=== PATIENT | female | born 1950 | race Caucasian/White ===

== ENCOUNTER → 2022-03-24 13:21 | Outpatient (BNVA) | payer MEDICARE, SELFPAY | PROVIDERS: PCP Family Medicine; Visit Provider Student in an Organized Health Care Education/Training Program | DX: M06.09 Rheumatoid arthritis without rheumatoid factor, multiple sites (principal); M70.62 Trochanteric bursitis, left hip; G62.9 Polyneuropathy, unspecified; Z11.59 Encounter for screening for other viral diseases; E11.22 Type 2 diabetes mellitus with diabetic chronic kidney disease; I12.9 Hypertensive chronic kidney disease with stage 1 through stage 4 chronic kidney disease, or unspecified chronic kidney disease; N18.30 Chronic kidney disease, stage 3 unspecified; Z11.7 Encounter for testing for latent tuberculosis infection | CPT/HCPCS: 20610; 99202 ==

== ENCOUNTER → 2022-05-04 11:37 | Outpatient (BNVA) | payer MEDICARE, SELFPAY | PROVIDERS: PCP Family Medicine; Visit Provider Student in an Organized Health Care Education/Training Program | DX: M06.09 Rheumatoid arthritis without rheumatoid factor, multiple sites (principal); M70.62 Trochanteric bursitis, left hip; G62.9 Polyneuropathy, unspecified | CPT/HCPCS: 99212 ==

== ENCOUNTER 2022-10-19 13:59 | Outpatient (REF) | payer OTHER, SELFPAY ==
[2022-10-19 15:22] LABS: MANUAL DIFF FLAG NO
[2022-10-19 15:55] LABS: Basophils Percent Auto 0.4 % (0-2); Eosinophils Absolute Auto 0.2 X10*3/uL (0.0-0.4); Hematocrit 40.2 % (37.0-47.0); Hemoglobin 13.4 g/dl (12.0-16.0); Imm Gran Abs Auto 0.02 X10*3/uL (0.00-0.03); Imm Gran Pct Auto 0.3 % (0.0-0.4); Lymphocytes Absolute Auto 4.1 X10*3/uL (1.2-4.9); Lymphocytes Percent Auto 54.6 % (20-40); Mean Corpuscular HGB Conc 33.3 g/dl (31.0-35.0); Mean Corpuscular Hemoglobin 32.5 pg (27.0-33.0); Mean Corpuscular Volume 97.6 fL (80.0-98.0); Mean Platelet Volume 9.5 fL (9.4-12.3); Monocytes Absolute Auto 0.7 X10*3/uL (0.1-1.2); Monocytes Percent Auto 8.8 % (2-11); Neutrophils Absolute Auto 2.5 x10*3/uL (2.0-8.3); Neutrophils Percent Auto 32.9 % (45-73); Platelet Count 267 X10*3/uL (160-400); Red Blood Count 4.12 X10*6/uL (4.20-5.50); Red Cell Distribution Width 12.1 % (11.0-16.0); White Blood Count 7.6 X10*3/uL (4.8-10.8)
[2022-10-19 16:40] LABS: Erythrocyte Sedimentation Rate 23 MM/HR (0-20)
[2022-10-19 16:51] LABS: Alanine Aminotransferase 31 U/L (0-31); Alkaline Phosphatase 59 U/L (39-117); Anion Gap 12 (12-20); Aspartate Amino Transferase 28 U/L (5-31); Bilirubin Total 0.7 mg/dL (0.0-1.0); Blood Urea Nitrogen 17 mg/dL (9-16); C Reactive Protein 0.35 mg/dL (< or = 0.50); Calcium 9.7 mg/dL (8.4-10.2); Carbon Dioxide 28 mmol/L (22-29); Chloride 103 mmol/L (96-108); Estimated Glomerular Filt Rate > 60; Glucose Random 134 mg/dL (60-115); Potassium 3.4 mmol/L (3.3-5.1); Sodium 140 mmol/L (135-145); Total Protein 7.5 g/dL (6.5-8.0)
== END 2022-10-19 14:00 | disposition home or self-care (01) ==
LOC: HO.LAB 13:59
PROVIDERS: PCP Family Medicine; Visit Provider Student in an Organized Health Care Education/Training Program
DX: M06.09 Rheumatoid arthritis without rheumatoid factor, multiple sites (principal)
CPT/HCPCS: 36415; 80053; 85025; 85652; 86140; 99212

== ENCOUNTER 2022-10-19 13:59 | Outpatient (AMB) | payer MEDICARE, SELFPAY ==
[2022-10-19 14:03] VITALS: BP 122/64; PULSE 87; TEMP 36.3; O2SAT 96; BMI 34.0
--- NOTE | 2022-10-19 14:03 | MHC.OFFVIS ---
Intake Vital Signs 10/19/22 14:03 Height 5 ft 7.5 in Weight 220 lb 10.923 oz BMI 34.0 BP 122/64 Blood Pressure Location Rt brachial Position Sitting Pulse 87 Pulse Source Pulse Oximeter Temp 97.3 F Temp Source Skin Pulse Oximetry (%) 96 Intake Visit Reasons: RA Intake Note: Pt seen today for RA follow up. Test Driller Required: No Accompanied by: Self / Same As Patient Allergies naproxen Allergy (Intermediate, Verified 10/19/22 14:05) nausea, vomiting, diarrhea sulfasalazine Allergy (Intermediate, Verified 10/19/22 14:05) itchy indomethacin [From Indocin] Allergy (Unknown, Verified 10/19/22 14:05) Unknown Sulfa (Sulfonamide Antibiotics) Allergy (Unknown, Verified 10/19/22 14:05) Unknown prednisone Adverse Reaction (Mild, Verified 10/19/22 14:05) Swelling zocar Allergy (Unknown, Uncoded 10/19/22 14:05) unknown Medication List - Last Reconciled 10/19/22 by Deneen Triana MD adalimumab (Humira(CF) Pen) inject one - 40 mg/0.4 mL pen every 2 weeks subcut cyanocobalamin (vitamin B-12) 3,000 mcg PO DAILY cyclosporine 0.05% (Restasis) 1 drp ophthalmic (eye) Q12H diclofenac sodium 1% (Arthritis Pain (diclofenac)) 2 grams topical QID ferrous fumarate 325 mg PO DAILY fluticasone propionate 110 mcg/actuation (Flovent HFA) 1 puff inhalation BID hydrochlorothiazide 25 mg PO DAILY ibuprofen 400 mg PO Q8H PRN lactobacillus combination no.9 (Adult 50 Plus Probiotic) 4,000 mmu cells PO DAILY losartan 50 mg PO DAILY loteprednol etabonate 0.5% (Lotemax) 1 drp ophthalmic (eye) QID magnesium 400 mg PO BEDTIME PRN magnesium oxide 400 mg PO DAILY jxobglvq-ewg-ujqg-FA-lutein 8 mg iron-400 mcg-300 mcg (Centrum Silver Women) 1 tab PO DAILY omega 5-juk-ohm-fish oil 100-160-1,000 mg (Fish Oil) caps PO DAILY omeprazole 20 mg PO DAILY pilocarpine HCl 7.5 mg PO BID tizanidine 4 mg PO BID HPI HPI Comments History of Present Illness Details Patient returns for follow-up of seronegative RA. Patient follows recently prescribed a belt for her back which seems to help. She continues to have numbness of her feet worse with walking and standing. Improved with sitting, also improved with lying down and raising her feet up. She continues to have pain and swelling in her ankles, toes, hands, fingers. She uses compression gloves which helped. On Humira every other week Initial history: This is a 72-year-old female with past medical history of anxiety, depression, fibromyalgia, dyslipidemia who presents for evaluation of RA. Patient states she was diagnosed with rheumatoid arthritis in the late by Dr. Tate. ? 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 She did well on Enbrel for more than 10 years, and it was interrupted in 2018 when she had her right knee replacement. When the Enbrel was restarted it was never as efficacious as it was. Was doing well on Humira and leflunomide 10 mg a day however Leflunomide stopped due to neuropathy. Patient stated that she continues to have pain in her thumbs, the outside of her hips worse on the left. She has generalized morning stiffness lasting 15-20 minutes. Patient was diagnosed with neuropathy and leflunomide was discontinued. She had an EMG which showed mild neuropathy per patient. Venlafaxine helped the neuropathy.? Could not tolerate gabapentin.? Amitriptyline was not effective. Patient stated that she was also diagnosed with Sjogren's based on sicca symptoms and salivary gland biopsy. Some of her neuropathy was attributed to Sjogren's. Also over the last year she has been having loose stool and fecal incontinence. She had an endoscopy and manometry studies which showed rectal Dyssnergia. [facility] Medical History Alopecia Anxiety Depression Diabetes Essential (primary) hypertension Fibromyalgia Ganglion cyst Hyperlipemia Kidney disease, chronic, stage III (GFR 30-59 ml/min) Neutropenia Obesity PB (obstructive sleep apnea) Restless leg syndrome Rheumatoid arthritis Visual disturbance Surgical History History of hysterectomy History of knee replacement History of surgical removal of ganglion cyst Hx of colonoscopy Hx of left knee surgery Family History Daughter Osteoporosis Mother Rheumatoid arthritis Maternal Grandmother Rheumatoid arthritis Maternal Grandmother Rheumatoid arthritis Social History Household Members: Children Housing: House Alcohol intake: never Patient Tobacco Use Status: Never used Tobacco Current occupational status: previously employed and retired 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 Review of Systems Const Reports fatigue Musc Reports arthralgias, Reports joint swelling, Reports numbness and Reports stiffness Neuro Reports memory loss and Reports numbness Psych Reports depression and Reports memory loss Endo Reports fatigue Physical Exam Vital Signs: Last Vital Signs Temp 97.3 F 10/19/22 14:03 Pulse 87 10/19/22 14:03 BP 122/64 10/19/22 14:03 Pulse Ox 96 10/19/22 14:03 BMI result Body Mass Index 34.0 Const General: cooperative, healthy appearing and comfortable Nutritional Appearance: obese Orientation/consciousness: patient oriented x3 Limitations: no limitations HEENT Head: Yes normocephalic and Yes atraumatic Mouth: moist mucous membranes Resp Effort & Inspection: normal respiratory effort and able to speak in complete sentences Cardio Rate: regular rate Rhythm: regular rhythm Heart sounds: S1 normal heart sound present and S2 normal heart sound present GI Inspection: No distended Palpation (GI): Soft to palpation and nontender Skin General skin exam: no rashes or lesions noted Neuro Other: Mildly reduced sensation in both feet General: patient oriented x3 Extrem Other: Osteoarthritic changes of both hands with Heberden's nodes Left index finger Heberden's node tenderness Puffiness of fingers of both hands few MCP joints swelling and tenderness bilaterally Bilateral wrist pain with full range of motion Left ankle swelling and tenderness to palpation Few tender MTPs bilaterally Normal range of motion of both shoulders Left trochanteric bursa area tenderness Normal nailfold capillaroscopy Results Reviewed Results Reviewed: Labs 03/2022? CBC unremarkable Sed rate 24 CMP unremarkable Uric acid 5.4 C3-1 65 normal? C4 of 31 normal? CRP normal QuantiFERON negative Anca screen negative? MPO/PR3/SSA/SSB/CHARISMA negative RF/CCP negative? Nelson normal Hepatitis panel negative IgA 369 (70-320) IgG normal? IgM normal SPEP normal EMG of lower extremity in 2021: Normal Assessment & Plan Assessment & Plan (1) Rheumatoid arthritis: Comment: Seronegative diagnosed 1998 Enbrel effective for many years until 2018 Humira started around 2018, not as effective Methotrexate intolerant due to brain fog Leflunomide discontinued due to neuropathy Sulfa allergy Prednisone causes mood disorders Code(s): M06.9 - Rheumatoid arthritis, unspecified Qualifiers: Rheumatoid arthritis location: multiple sites Rheumatoid factor presence: without rheumatoid factor Qualified Code(s): M06.09 - Rheumatoid arthritis without rheumatoid factor, multiple sites Plan: This is a 72 year old female with a past medical history of seronegative RA/Sjogren's who presents follow-up. Upon evaluation today patient has multiple swollen and tender joints. Will need to change DMARDs. Discussed risks and benefits of Actemra. Patient is unaware of any history of diverticulitis. Patient agreed to proceed. Start prior authorization for Actemra Labs today and before next visit in 3 months Infectious screening: Hepatitis panel and T spot -ve 2022 Plan I spent 24 minutes reviewing patient's chart, evaluating patient, ordering diagnostic workup, counseling patient and documenting in the chart Orders: Orders Comprehensive Met. Panel 3 Months M06.9 - Rheumatoid arthritis, unspecified C Reactive Protein 3 Months M06.9 - Rheumatoid arthritis, unspecified Complete Blood Count Auto Diff 3 Months M06.9 - Rheumatoid arthritis, unspecified Erythrocyte Sedimentation Rate 3 Months M06.9 - Rheumatoid arthritis, unspecified Comprehensive Met. Panel Today M06.9 - Rheumatoid arthritis, unspecified C Reactive Protein Today M06.9 - Rheumatoid arthritis, unspecified Complete Blood Count Auto Diff Today M06.9 - Rheumatoid arthritis, unspecified Erythrocyte Sedimentation Rate Today M06.9 - Rheumatoid arthritis, unspecified Coding Level of Care Code Est Pt Level 4 (01587) Diagnoses Rheumatoid arthritis M06.09 Rheumatoid arthritis location: multiple sites Rheumatoid factor presence: without rheumatoid factor
== END 2022-10-19 14:44 | disposition home or self-care (01) ==
PROVIDERS: PCP Family Medicine; Visit Provider Student in an Organized Health Care Education/Training Program
DX: M06.09 Rheumatoid arthritis without rheumatoid factor, multiple sites (principal)
CPT/HCPCS: 99214

== ENCOUNTER 2023-01-19 13:52 | Outpatient (AMB) | payer MEDICARE, SELFPAY ==
[2023-01-19 14:08] VITALS: BP 124/62; PULSE 77; TEMP 36.6; O2SAT 95; BMI 33.5
--- NOTE | 2023-01-19 14:08 | MHC.OFFVIS ---
Intake Vital Signs 01/19/23 14:08 Height 5 ft 7.5 in Weight 217 lb 6.012 oz BMI 33.5 BP 124/62 Blood Pressure Location Rt brachial Position Sitting Pulse 77 Pulse Source Pulse Oximeter Temp 97.8 F Temp Source Skin Pulse Oximetry (%) 95 Intake Visit Reasons: RA Intake Note: Pt presents today for follow up and test results. She did not complete her bloodwork ordered. Reports rash since starting Actemra, would like to discuss alternative. Also reports fatigue and muscle weakness since starting Actemra. Saw PCP last week Institutional Research Director Required: No Accompanied by: Self / Same As Patient Allergies naproxen Allergy (Intermediate, Verified 01/19/23 14:23) nausea, vomiting, diarrhea sulfasalazine Allergy (Intermediate, Verified 01/19/23 14:23) itchy indomethacin [From Indocin] Allergy (Unknown, Verified 01/19/23 14:23) Unknown Sulfa (Sulfonamide Antibiotics) Allergy (Unknown, Verified 01/19/23 14:23) Unknown prednisone Adverse Reaction (Mild, Verified 01/19/23 14:23) Swelling zocar Allergy (Unknown, Uncoded 01/19/23 14:23) unknown Medication List - Last Reconciled 01/19/23 by Deneen Triana MD cholecalciferol (vitamin D3) 25 mcg PO DAILY cyanocobalamin (vitamin B-12) 3,000 mcg PO DAILY cyclosporine 0.05% (Restasis) 1 drp ophthalmic (eye) Q12H diclofenac sodium 1% (Arthritis Pain (diclofenac)) 2 grams topical QID ferrous fumarate 325 mg PO DAILY fluticasone propionate 110 mcg/actuation (Flovent HFA) 1 puff inhalation BID hydrochlorothiazide 25 mg PO DAILY ibuprofen 400 mg PO Q8H PRN lactobacillus combination no.9 (Adult 50 Plus Probiotic) 4,000 mmu cells PO DAILY losartan 50 mg PO DAILY loteprednol etabonate 0.5% (Lotemax) 1 drp ophthalmic (eye) QID magnesium 400 mg PO BEDTIME PRN magnesium oxide 400 mg PO DAILY ltfyxbxu-lam-aumx-FA-vit K-lut 8 mg iron-400 mcg-50 mcg (Centrum Silver Women) 1 tab PO DAILY omega 0-iad-xaz-fish oil 100-160-1,000 mg (Fish Oil) caps PO DAILY omeprazole 20 mg PO DAILY pilocarpine HCl 5 mg PO BID tizanidine 4 mg PO BID HPI HPI Comments History of Present Illness Details 72-year-old female with seronegative RA returns for follow-up. Patient in about 5 Actemra injections so far. States that since doing the exam as she has been having itchy skin rashes on her upper back which improved then flare-up again once she does the Actemra injection. She has been applying different steroid creams with improved the itching but not the rash. States that her joint pain especially the hips, elbows, hands is much better overall. She has been feeling fatigued however. She has been wearing a belt for her back which helps, she also has been doing physical therapy for her hips. Initial history: This is a 72-year-old female with past medical history of anxiety, depression, fibromyalgia, dyslipidemia who presents for evaluation of RA. Patient states she was diagnosed with rheumatoid arthritis in the late s by Dr. Tate. ? 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 She did well on Enbrel for more than 10 years, and it was interrupted in 2018 when she had her right knee replacement. When the Enbrel was restarted it was never as efficacious as it was. Was doing well on Humira and leflunomide 10 mg a day however Leflunomide stopped due to neuropathy. Patient stated that she continues to have pain in her thumbs, the outside of her hips worse on the left. She has generalized morning stiffness lasting 15-20 minutes. Patient was diagnosed with neuropathy and leflunomide was discontinued. She had an EMG which showed mild neuropathy per patient. Venlafaxine helped the neuropathy.? Could not tolerate gabapentin.? Amitriptyline was not effective. Patient stated that she was also diagnosed with Sjogren's based on sicca symptoms and salivary gland biopsy. Some of her neuropathy was attributed to Sjogren's. Also over the last year she has been having loose stool and fecal incontinence. She had an endoscopy and manometry studies which showed rectal Dyssnergia. [facility] Medical History (Updated 01/19/23 @ 17:04 by Deneen Triana MD) Ganglion cyst Fibromyalgia Rheumatoid arthritis Alopecia Kidney disease, chronic, stage III (GFR 30-59 ml/min) Essential (primary) hypertension Visual disturbance Restless leg syndrome PB (obstructive sleep apnea) Anxiety Depression Neutropenia Obesity Hyperlipemia Diabetes Surgical History History of knee replacement History of hysterectomy Hx of colonoscopy Hx of left knee surgery History of surgical removal of ganglion cyst Family History Daughter Osteoporosis Mother Rheumatoid arthritis Maternal Grandmother Rheumatoid arthritis Maternal Grandmother Rheumatoid arthritis Social History Household Members: Children Housing: House Alcohol intake: never Patient Tobacco Use Status: Never used Tobacco Current occupational status: previously employed and retired 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 Review of Systems Musc Reports back pain, Denies arthralgias and Denies joint swelling Skin/Breast Reports pruritus and Reports rash Physical Exam Vital Signs: Last Vital Signs Temp 97.8 F 01/19/23 14:08 Pulse 77 01/19/23 14:08 BP 124/62 01/19/23 14:08 Pulse Ox 95 01/19/23 14:08 BMI result Body Mass Index 33.5 Const General: cooperative, healthy appearing and comfortable Nutritional Appearance: obese Orientation/consciousness: patient oriented x3 Limitations: no limitations HEENT Head: Yes normocephalic and Yes atraumatic Resp Effort & Inspection: normal respiratory effort and able to speak in complete sentences Cardio Rate: regular rate Rhythm: regular rhythm Heart sounds: S1 normal heart sound present and S2 normal heart sound present Skin Other: Rash on her upper back Neuro Other: Mildly reduced sensation in both feet General: patient oriented x3 Extrem Other: Osteoarthritic changes of both hands with Heberden's nodes Left index finger Heberden's node tenderness Puffiness of fingers of both hands No MCP joint swelling or tenderness bilaterally today Normal range of motion of both wrists without pain Left knee warmth and pain with full flexion and full extension Normal range of motion of both elbows and shoulders without pain No ankle swelling or tenderness bilaterally Negative MTP tenderness and negative MTP squeeze test bilateral Normal nailfold capillaroscopy Office Procedures Joint Injection/Drain Joint Injection/Drain Primary Site: left knee Prep: site was prepped using sterile technique and ethochloride spray was applied Injected: 40 mg of and other (2 mL of 1% lidocaine) Approach Used: medial parapatellar Procedure: The patient tolerated the procedure well Coding Details: With the patient's consent the left knee was prepped with ChloraPrep and alcohol. The skin was anesthetized with 2 cc of 1% lidocaine. The knee was then injected with 40 mg of triamcinolone and 2 cc of I % lidocaine. The patient tolerated the procedure with no immediate adverse effects. - Large joint Procedure code (CPT) selection complete Results Reviewed Results Reviewed: Labs 03/2022? CBC unremarkable Sed rate 24 CMP unremarkable Uric acid 5.4 C3-1 65 normal? C4 of 31 normal? CRP normal QuantiFERON negative Anca screen negative? MPO/PR3/SSA/SSB/CHARISMA negative RF/CCP negative? Nelson normal Hepatitis panel negative IgA 369 (70-320) IgG normal? IgM normal SPEP normal EMG of lower extremity in 2021: Normal Assessment & Plan Assessment & Plan (1) Rheumatoid arthritis: Comment: Seronegative diagnosed 1998 Enbrel effective for many years until 2018 Humira started around 2018, not as effective Methotrexate intolerant due to brain fog Leflunomide discontinued due to neuropathy Sulfa allergy Prednisone causes mood disorders Actemra 10/2022 - 12/2022 effective but caused itchy skin rash & fatigue Code(s): M06.9 - Rheumatoid arthritis, unspecified Qualifiers: Rheumatoid arthritis location: multiple sites Rheumatoid factor presence: without rheumatoid factor Qualified Code(s): M06.09 - Rheumatoid arthritis without rheumatoid factor, multiple sites Plan: This is a 72 year old female with a past medical history of seronegative RA/Sjogren's who presents follow-up. On Actemra 162 mg every other week. Patient has significantly improved synovitis however she develops an itchy skin rash on her upper back soon after injection which improves a few days after then comes back with the next injection. She is also complaining of fatigue. Discontinue Actemra. With patient consent left knee was injected with Kenalog today. Will watch patient off DMARDs. Advised patient to call the clinic if she develops recurrent joint pain. Other alternatives can be discussed such as Kevzara, JEREMIE inhibitors or Orencia Labs today and before next visit in 3 months Plan I spent 30 minutes reviewing patient's chart, evaluating patient, ordering diagnostic workup, counseling patient and documenting in the chart Orders: Orders C Reactive Protein 3 Months M06.9 - Rheumatoid arthritis, unspecified Erythrocyte Sedimentation Rate 3 Months M06.9 - Rheumatoid arthritis, unspecified AMB Joint Injection/Aspiration Today M06.9 - Rheumatoid arthritis, unspecified Complete Blood Count Auto Diff 3 Months M06.9 - Rheumatoid arthritis, unspecified Comprehensive Met. Panel 3 Months M06.9 - Rheumatoid arthritis, unspecified Coding Level of Care Code Est Pt Level 4 (47664) Diagnoses Rheumatoid arthritis of multiple sites with negative rheumatoid factor M06.09 Rheumatoid arthritis location: multiple sites Rheumatoid factor presence: without rheumatoid factor CPT Codes Coding - 11829 Large joint: 79408 - Large joint ([id number])
== END 2023-01-19 14:52 | disposition home or self-care (01) ==
PROVIDERS: PCP Family Medicine; Visit Provider Student in an Organized Health Care Education/Training Program
DX: M06.09 Rheumatoid arthritis without rheumatoid factor, multiple sites (principal)
CPT/HCPCS: 20610; 99214

== ENCOUNTER 2023-01-19 13:52 | Outpatient (REF) | payer OTHER, SELFPAY ==
[2023-01-19 15:14] LABS: MANUAL DIFF FLAG NO
[2023-01-19 15:38] LABS: Basophils Percent Auto 0.7 % (0-2); Eosinophils Absolute Auto 0.2 X10*3/uL (0.0-0.4); Eosinophils Percent Auto 3.8 % (0-4); Hemoglobin 13.3 g/dl (12.0-16.0); Imm Gran Abs Auto 0.01 X10*3/uL (0.00-0.03); Imm Gran Pct Auto 0.2 % (0.0-0.4); Lymphocytes Absolute Auto 3.2 X10*3/uL (1.2-4.9); Lymphocytes Percent Auto 53.1 % (20-40); Mean Corpuscular HGB Conc 34.1 g/dl (31.0-35.0); Mean Corpuscular Hemoglobin 32.9 pg (27.0-33.0); Mean Corpuscular Volume 96.5 fL (80.0-98.0); Mean Platelet Volume 9.2 fL (9.4-12.3); Monocytes Absolute Auto 0.9 X10*3/uL (0.1-1.2); Monocytes Percent Auto 14.3 % (2-11); Neutrophils Absolute Auto 1.7 x10*3/uL (2.0-8.3); Neutrophils Percent Auto 27.9 % (45-73); Platelet Count 262 X10*3/uL (160-400); Red Blood Count 4.04 X10*6/uL (4.20-5.50); Red Cell Distribution Width 12.4 % (11.0-16.0)
[2023-01-19 16:13] LABS: Alanine Aminotransferase 45 U/L (0-31); Albumin Level 4.2 g/dL (3.5-5.0); Alkaline Phosphatase 62 U/L (39-117); Anion Gap 14 (12-20); Aspartate Amino Transferase 33 U/L (5-31); Bilirubin Total 0.5 mg/dL (0.0-1.0); Blood Urea Nitrogen 23 mg/dL (9-16); C Reactive Protein 0.25 mg/dL (< or = 0.50); Calcium 10.1 mg/dL (8.4-10.2); Carbon Dioxide 29 mmol/L (22-29); Chloride 101 mmol/L (96-108); Estimated Glomerular Filt Rate > 60; Glucose Random 92 mg/dL (60-115); Potassium 3.9 mmol/L (3.3-5.1); Sodium 140 mmol/L (135-145); Total Protein 7.6 g/dL (6.5-8.0)
[2023-01-19 16:52] LABS: Erythrocyte Sedimentation Rate 20 MM/HR (0-20)
== END 2023-01-19 13:53 | disposition home or self-care (01) ==
LOC: HO.LAB 13:52
PROVIDERS: PCP Family Medicine; Visit Provider Student in an Organized Health Care Education/Training Program
DX: M06.09 Rheumatoid arthritis without rheumatoid factor, multiple sites (principal)
CPT/HCPCS: 20610; 36415; 80053; 85025; 85652; 86140; 99212; J3301

== ENCOUNTER 2023-06-11 13:03 | Outpatient (AMB) | payer OTHER, SELFPAY ==
--- NOTE | 2023-06-11 13:10 | MHC.OFFVIS ---
Intake Vital Signs 06/11/23 13:18 Height 5 ft 7.5 in Weight 208 lb 8.917 oz BMI 32.2 BP 102/78 Blood Pressure Location Lt brachial Position Sitting Pulse 93 Pulse Source Pulse Oximeter Temp 97 F Temp Source Skin Pulse Oximetry (%) 94 Oxygen Delivery Method Room Air Intake Visit Reasons: Rt hand pain/swelling Intake Note: C/o Right had pain, stiffness, swelling x 1 week. Reports difficulty closing hand. 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 Required: No Accompanied by: Daughter Allergies naproxen Allergy (Intermediate, Verified 06/11/23 13:10) nausea, vomiting, diarrhea sulfasalazine Allergy (Intermediate, Verified 06/11/23 13:10) itchy indomethacin [From Indocin] Allergy (Unknown, Verified 06/11/23 13:10) Unknown Sulfa (Sulfonamide Antibiotics) Allergy (Unknown, Verified 06/11/23 13:10) Unknown prednisone Adverse Reaction (Mild, Verified 06/11/23 13:10) Swelling zocar Allergy (Unknown, Uncoded 06/11/23 13:10) unknown Medication List - Last Reconciled 06/11/23 by Deneen Triana MD cholecalciferol (vitamin D3) 25 mcg PO DAILY cyanocobalamin (vitamin B-12) 3,000 mcg PO DAILY cyclosporine 0.05% (Restasis) 1 drp ophthalmic (eye) Q12H diclofenac sodium 1% (Arthritis Pain (diclofenac)) 2 grams topical QID ferrous fumarate 325 mg PO DAILY fluticasone propionate 110 mcg/actuation (Flovent HFA) 1 puff inhalation BID hydrochlorothiazide 25 mg PO DAILY ibuprofen 400 mg PO Q8H PRN lactobacillus combination no.9 (Adult 50 Plus Probiotic) 4,000 mmu cells PO DAILY losartan 50 mg PO DAILY loteprednol etabonate 0.5% (Lotemax) 1 drp ophthalmic (eye) QID magnesium 400 mg PO BEDTIME PRN magnesium oxide 400 mg PO DAILY sytzainm-vou-tydc-FA-vit K-lut 8 mg iron-400 mcg-50 mcg (Centrum Silver Women) 1 tab PO DAILY omega 7-cvs-lib-fish oil 100-160-1,000 mg (Fish Oil) caps PO DAILY omeprazole 20 mg PO DAILY pilocarpine HCl 5 mg PO BID tizanidine 4 mg PO BID HPI HPI Comments History of Present Illness Details 73-year-old female with seronegative RA returns for an urgent visit. Patient received a steroid injection in her knee December/2022. She states that she was doing quite well overall until about 3 weeks ago when she got a head cold since then she has been having multiple painful and swollen joints including both her hands, worse on the right, both wrists, both ankles. Right hip. She is not on any DMARDs since last visit Initial history: This is a 72-year-old female with past medical history of anxiety, depression, fibromyalgia, dyslipidemia who presents for evaluation of RA. Patient states she was diagnosed with rheumatoid arthritis in the late by Dr. Tate. ? 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 She did well on Enbrel for more than 10 years, and it was interrupted in 2017 when she had her right knee replacement. When the Enbrel was restarted it was never as efficacious as it was. Was doing well on Humira and leflunomide 10 mg a day however Leflunomide stopped due to neuropathy. Patient stated that she continues to have pain in her thumbs, the outside of her hips worse on the left. She has generalized morning stiffness lasting 15-20 minutes. Patient was diagnosed with neuropathy and leflunomide was discontinued. She had an EMG which showed mild neuropathy per patient. Venlafaxine helped the neuropathy.? Could not tolerate gabapentin.? Amitriptyline was not effective. Patient stated that she was also diagnosed with Sjogren's based on sicca symptoms and salivary gland biopsy. Some of her neuropathy was attributed to Sjogren's. Also over the last year she has been having loose stool and fecal incontinence. She had an endoscopy and manometry studies which showed rectal Dyssnergia. [facility] Medical History Ganglion cyst Fibromyalgia Rheumatoid arthritis Alopecia Kidney disease, chronic, stage III (GFR 30-59 ml/min) Essential (primary) hypertension Visual disturbance Restless leg syndrome PB (obstructive sleep apnea) Anxiety Depression Neutropenia Obesity Hyperlipemia Diabetes Surgical History History of knee replacement History of hysterectomy Hx of colonoscopy Hx of left knee surgery History of surgical removal of ganglion cyst Family History Daughter Osteoporosis Mother Rheumatoid arthritis Maternal Grandmother Rheumatoid arthritis Maternal Grandmother Rheumatoid arthritis Social History Household Members: Children Housing: House Alcohol intake: never Patient Tobacco Use Status: Never used Tobacco Current occupational status: previously employed and retired 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 Reports arthralgias, Reports joint swelling, Reports limited range of motion and Reports stiffness Physical Exam Vital Signs: Last Vital Signs Temp 97 F 06/11/23 13:18 Pulse 93 06/11/23 13:18 BP 102/78 06/11/23 13:18 Pulse Ox 94 06/11/23 13:18 Oxygen Delivery Method Room Air 06/11/23 13:18 BMI result Body Mass Index 32.2 Const General: cooperative, healthy appearing, comfortable and in distress mild Nutritional Appearance: obese Orientation/consciousness: patient oriented x3 Limitations: no limitations HEENT Head: Yes normocephalic and Yes atraumatic Mouth: moist mucous membranes Resp Effort & Inspection: normal respiratory effort and able to speak in complete sentences Auscultation: clear to auscultation bilaterally Neuro General: patient oriented x3 Extrem Other: Right :wrist swelling, tenderness and pain with flexion and extension Diffuse MCP swelling and tenderness Diffuse finger puffiness Left hand few tender MCPs Bilateral ankle tenderness Results Reviewed Results Reviewed: Labs 03/2022? CBC unremarkable Sed rate 24 CMP unremarkable Uric acid 5.4 C3-1 65 normal? C4 of 31 normal? CRP normal QuantiFERON negative Anca screen negative? MPO/PR3/SSA/SSB/CHARISMA negative RF/CCP negative? Nelson normal Hepatitis panel negative IgA 369 (70-320) IgG normal? IgM normal SPEP normal EMG of lower extremity in 2021: Normal Assessment & Plan Assessment & Plan (1) Rheumatoid arthritis: Comment: Seronegative diagnosed 1998 Enbrel effective for many years until 2018 Humira started around 2018, not as effective Methotrexate intolerant due to brain fog Leflunomide discontinued due to neuropathy Sulfa allergy Prednisone causes mood disorders Actemra 10/2022 - 12/2022 effective but caused itchy skin rash & fatigue Code(s): M06.9 - Rheumatoid arthritis, unspecified Qualifiers: Rheumatoid arthritis location: multiple sites Rheumatoid factor presence: without rheumatoid factor Qualified Code(s): M06.09 - Rheumatoid arthritis without rheumatoid factor, multiple sites Plan: This is a 73 year old female with a past medical history of seronegative RA/Sjogren's who presents follow-up. Patient has been off DMARDs since 12/2022. She was doing quite well until 3 weeks ago when she had an upper respiratory tract infection. On exam today she has diffuse synovitis. Will need to restart DMARDs. Actemra, worked quite well for patient's RA but she developed an allergic reaction to it. IL 6 inhibitors should be effective. Discussed risks and benefits of Kevzara. Will start prior authorization for Kevzara Prednisone taper prescribed Labs before next visit in 2 months Plan I spent 25 minutes reviewing patient's chart, evaluating patient, ordering diagnostic workup, counseling patient and documenting in the chart Medications: New prednisone Take 3 tabs daily for 1 week, 2 tabs daily for 2 weeks, 1 tab daily for 2 weeks then stop 63 tabs 0RF Coding Level of Care Code Est Pt Level 4 (50693) Diagnoses Rheumatoid arthritis of multiple sites with negative rheumatoid factor M06.09 Rheumatoid arthritis location: multiple sites Rheumatoid factor presence: without rheumatoid factor
[2023-06-11 13:18] VITALS: BP 102/78; PULSE 93; TEMP 36.1; O2SAT 94; BMI 32.2
== END 2023-06-11 13:34 | disposition home or self-care (01) ==
PROVIDERS: PCP Family Medicine; Visit Provider Student in an Organized Health Care Education/Training Program
DX: M06.09 Rheumatoid arthritis without rheumatoid factor, multiple sites (principal)
CPT/HCPCS: 99214

== ENCOUNTER → 2023-06-11 13:03 | Outpatient (BNVA) | payer OTHER, SELFPAY | PROVIDERS: PCP Family Medicine; Visit Provider Student in an Organized Health Care Education/Training Program | DX: M06.09 Rheumatoid arthritis without rheumatoid factor, multiple sites (principal) | CPT/HCPCS: 99212 ==

== ENCOUNTER 2023-08-14 14:13 | Outpatient (AMB) | payer OTHER, SELFPAY ==
[2023-08-14 14:22] VITALS: BP 112/58; PULSE 89; O2SAT 99; BMI 33.1
--- NOTE | 2023-08-14 14:22 | A.OFFVIS_ITS ---
Vital Signs 08/14/23 14:22 Height 5 ft 7.5 in Weight 214 lb 8.156 oz BMI 33.1 BP 112/58 L Blood Pressure Location Rt brachial Position Sitting Pulse 89 Pulse Source Pulse Oximeter Pulse Oximetry (%) 99 Oxygen Delivery Method Room Air Intake Visit Reasons: RA Intake Note: Patient last seen 06/11/23 presents today for follow up and test results. Reports bl feet swelling and throbbing pain, very tender. 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 Required: No Accompanied by: Self / Same As Patient Allergies naproxen Allergy (Intermediate, Verified 08/14/23 14:32) nausea, vomiting, diarrhea sulfasalazine Allergy (Intermediate, Verified 08/14/23 14:32) itchy indomethacin [From Indocin] Allergy (Unknown, Verified 08/14/23 14:32) Unknown Sulfa (Sulfonamide Antibiotics) Allergy (Unknown, Verified 08/14/23 14:32) Unknown prednisone Adverse Reaction (Mild, Verified 08/14/23 14:32) Swelling zocar Allergy (Unknown, Uncoded 08/14/23 14:32) unknown Medication List - Last Reconciled 08/14/23 by Deneen Triana MD cholecalciferol (vitamin D3) 25 mcg PO DAILY cyanocobalamin (vitamin B-12) 3,000 mcg PO DAILY cyclosporine 0.05% (Restasis) 1 drp ophthalmic (eye) Q12H diclofenac sodium 1% (Arthritis Pain (diclofenac)) 2 grams topical QID fluticasone propionate 110 mcg/actuation (Flovent HFA) 1 puff inhalation BID PRN hydrochlorothiazide 25 mg PO DAILY ibuprofen 400 mg PO Q8H PRN Kevzara (sarilumab) 200 mg (1.14 mL) subcut Q2W NS lactobacillus combination no.9 (Adult 50 Plus Probiotic) 4,000 mmu cells PO DAILY losartan 50 mg PO DAILY loteprednol etabonate 0.5% (Lotemax) 1 drp ophthalmic (eye) QID magnesium 400 mg PO BEDTIME PRN magnesium oxide 400 mg PO DAILY tnjccjqn-gqh-htei-FA-vit K-lut 8 mg iron-400 mcg-50 mcg (Centrum Silver Women) 1 tab PO DAILY omega 4-qne-mxl-fish oil 100-160-1,000 mg (Fish Oil) caps PO DAILY omeprazole 20 mg PO DAILY pilocarpine HCl 5 mg PO BID PRN prednisone Take 3 tabs daily for 1 week, 2 tabs daily for 2 weeks, 1 tab daily for 2 weeks then stop tizanidine 4 mg PO BID HPI Comments Details: 73-year-old female with seronegative RA returns for an urgent visit. She has been on Kevzara for about 2 months now. She states that she has been having bilateral hand pain, wrist pain and pain and swelling of her MTPs. She stated that about 10 days ago she was having significant pain and stiffness of her right hand, she was unable to close her hands. She had prednisone prescribed as needed but she has history of poor tolerance to prednisone in the past due to significant anxiety. However due to her severe symptoms she took prednisone 10 mg daily for 1 week and she was having significant headaches and anxiety but it did move the pain in her right hand. She stopped it 3 days ago Initial history: This is a 72-year-old female with past medical history of anxiety, depression, fibromyalgia, dyslipidemia who presents for evaluation of RA. Patient states she was diagnosed with rheumatoid arthritis in the late by Dr. Tate. ? 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 She did well on Enbrel for more than 10 years, and it was interrupted in 2018 when she had her right knee replacement. When the Enbrel was restarted it was never as efficacious as it was. Was doing well on Humira and leflunomide 10 mg a day however Leflunomide stopped due to neuropathy. Patient stated that she continues to have pain in her thumbs, the outside of her hips worse on the left. She has generalized morning stiffness lasting 15-20 minutes. Patient was heidi gnosed with neuropathy and leflunomide was discontinued. She had an EMG which showed mild neuropathy per patient. Venlafaxine helped the neuropathy.? Could not tolerate gabapentin.? Amitriptyline was not effective. Patient stated that she was also diagnosed with Sjogren's based on sicca symptoms and salivary gland biopsy. Some of her neuropathy was attributed to Sjogren's. Also over the last year she has been having loose stool and fecal incontinence. She had an endoscopy and manometry studies which showed rectal Dyssnergia. [facility] Medical History Ganglion cyst Fibromyalgia Rheumatoid arthritis Alopecia Kidney disease, chronic, stage III (GFR 30-59 ml/min) Essential (primary) hypertension Visual disturbance Restless leg syndrome PB (obstructive sleep apnea) Anxiety Depression Neutropenia Obesity Hyperlipemia Diabetes Surgical History History of knee replacement History of hysterectomy Hx of colonoscopy Hx of left knee surgery History of surgical removal of ganglion cyst Family History Daughter Osteoporosis Mother Rheumatoid arthritis Maternal Grandmother Rheumatoid arthritis Maternal Grandmother Rheumatoid arthritis Social History Household Members: Children Housing: House Alcohol intake: never Patient Tobacco Use Status: Never used Tobacco Current occupational status: previously employed and retired 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 Review of Systems [employer] Reports arthralgias, Reports joint swelling, Reports limited range of motion and Reports stiffness Physical Exam Vital Signs: Last Vital Signs Pulse 89 08/14/23 14:22 BP 112/58 L 08/14/23 14:22 Pulse Ox 99 08/14/23 14:22 Oxygen Delivery Method Room Air 08/14/23 14:22 BMI result Body Mass Index 33.1 Const General: cooperative, healthy appearing, comfortable and in distress mild Nutritional Appearance: obese Orientation/consciousness: patient oriented x3 Limitations: no limitations HEENT Head: Yes normocephalic and Yes atraumatic Mouth: moist mucous membranes Resp Effort & Inspection: normal respiratory effort and able to speak in complete sentences Auscultation: clear to auscultation bilaterally Neuro General: patient oriented x3 Extrem Other: Right : No wrist swelling or pain with flexion and extension. No tenderness Right 3rd 4th and 5th MCP swelling and tenderness No wrist swelling, tenderness or pain with range of motion left hand Right 4th and 5th MTP tenderness Left 4th and 5th MTP swelling and tenderness Results Reviewed Results Reviewed: Labs 03/2022? CBC unremarkable Sed rate 24 CMP unremarkable Uric acid 5.4 C3-1 65 normal? C4 of 31 normal? CRP normal QuantiFERON negative Anca screen negative? MPO/PR3/SSA/SSB/CHARISMA negative RF/CCP negative? Nelson normal Hepatitis panel negative IgA 369 (70-320) IgG normal? IgM normal SPEP normal EMG of lower extremity in 2021: Normal Assessment & Plan Assessment & Plan (1) Rheumatoid arthritis: Comment: Seronegative diagnosed 1998 HCQ not cleared by ophthalmology due to eye concerns Enbrel effective for many years until 2018 Humira started around 2018, not as effective Methotrexate intolerant due to brain fog Leflunomide discontinued due to neuropathy Sulfa allergy Prednisone causes mood disorders Actemra 10/2022 - 12/2022 effective but caused itchy skin rash & fatigue Kevzara 06/2023 DC 08/2023 ineffective Code(s): M06.9 - Rheumatoid arthritis, unspecified Category: Medical Qualifiers: Rheumatoid arthritis location: multiple sites Rheumatoid factor presence: without rheumatoid factor Qualified Code(s): M06.09 - Rheumatoid arthritis without rheumatoid factor, multiple sites Plan: This is a 73 year old female with a past medical history of seronegative RA/Sjogren's who presents follow-up. She is on Kevzara every other week. Not doing well. Kevzara is ineffective. She continues to require prednisone and she has significant side effects related to prednisone. On exam she has multiple swollen and tender joints. Will need to switch DMARDs. Discussed risks and benefits of both. Discussed the black box warning. Patient agreed to proceed. Will start prior authorization for Rinvoq 15 mg p.o. daily Labs before next visit in 2 months Plan I spent 25 minutes reviewing patient's chart, evaluating patient, ordering diagnostic workup, counseling patient and documenting in the chart Orders: Orders Comprehensive Met. Panel 2 Months M06.09 - Rheumatoid arthritis without rheumatoid factor, multiple sites Erythrocyte Sedimentation Rate 2 Months M06.09 - Rheumatoid arthritis without rheumatoid factor, multiple sites Complete Blood Count Auto Diff 2 Months M06.09 - Rheumatoid arthritis without rheumatoid factor, multiple sites C Reactive Protein 2 Months M06.09 - Rheumatoid arthritis without rheumatoid factor, multiple sites Medications: Discontinued Kevzara (sarilumab) Discontinued Reason: Doctor's Order 200 mg (1.14 mL) subcut Q2W 2.28 mL 2RF NS Coding Level of Care Code Est Pt Level 4 (33024) Diagnoses Rheumatoid arthritis of multiple sites with negative rheumatoid factor M06.09 Rheumatoid arthritis location: multiple sites Rheumatoid factor presence: without rheumatoid factor
== END 2023-08-14 15:03 | disposition home or self-care (01) ==
PROVIDERS: PCP Family Medicine; Visit Provider Student in an Organized Health Care Education/Training Program
DX: M06.09 Rheumatoid arthritis without rheumatoid factor, multiple sites (principal)
CPT/HCPCS: 99214

== ENCOUNTER → 2023-08-14 14:13 | Outpatient (BNVA) | payer OTHER, SELFPAY | PROVIDERS: PCP Family Medicine; Visit Provider Student in an Organized Health Care Education/Training Program | DX: M06.09 Rheumatoid arthritis without rheumatoid factor, multiple sites (principal) | CPT/HCPCS: 99212 ==

== ENCOUNTER 2023-10-18 13:44 | Outpatient (AMB) | payer OTHER, SELFPAY ==
--- NOTE | 2023-10-18 13:47 | A.OFFVIS_ITS ---
Vital Signs 10/18/23 13:51 Height 5 ft 7.5 in Weight 222 lb 10.67 oz BMI 34.4 BP 112/62 Blood Pressure Location Rt brachial Position Sitting Pulse 70 Pulse Source Pulse Oximeter Pulse Oximetry (%) 96 Oxygen Delivery Method Room Air Intake Visit Reasons: RA/CM Intake Note: Patient presents for RA. Allergies naproxen Allergy (Intermediate, Verified 10/18/23 13:50) nausea, vomiting, diarrhea sulfasalazine Allergy (Intermediate, Verified 10/18/23 13:50) itchy indomethacin [From Indocin] Allergy (Unknown, Verified 10/18/23 13:50) Unknown Sulfa (Sulfonamide Antibiotics) Allergy (Unknown, Verified 10/18/23 13:50) Unknown prednisone Adverse Reaction (Mild, Verified 10/18/23 13:50) Swelling zocar Allergy (Unknown, Uncoded 08/14/23 14:32) unknown Medication List - Last Reconciled 10/18/23 by Deneen Triana MD cholecalciferol (vitamin D3) 25 mcg PO DAILY cyanocobalamin (vitamin B-12) 3,000 mcg PO DAILY cyclosporine 0.05% (Restasis) 1 drp ophthalmic (eye) Q12H diclofenac sodium 1% (Arthritis Pain (diclofenac)) 2 grams topical QID fluticasone propionate 110 mcg/actuation (Flovent HFA) 1 puff inhalation BID PRN hydrochlorothiazide 25 mg PO DAILY ibuprofen 400 mg PO Q8H PRN lactobacillus combination no.9 (Adult 50 Plus Probiotic) 4,000 mmu cells PO DAILY losartan 50 mg PO DAILY loteprednol etabonate 0.5% (Lotemax) 1 drp ophthalmic (eye) QID magnesium 400 mg PO BEDTIME PRN magnesium oxide 400 mg PO DAILY dgjsgezm-asx-nvlr-FA-vit K-lut 8 mg iron-400 mcg-50 mcg (Centrum Silver Women) 1 tab PO DAILY omega 7-hhy-zcn-fish oil 100-160-1,000 mg (Fish Oil) caps PO DAILY omeprazole 20 mg PO DAILY pilocarpine HCl 5 mg PO BID PRN Rinvoq ER (upadacitinib) 15 mg PO DAILY NS tizanidine 4 mg PO BID HPI Comments Details: 73-year-old female with seronegative RA returns for follow-up. She has been on Rinvoq for the last 2 months. She states that she feels much better overall. She can not think of any side effects related to Rinvoq. Pain and stiffness of her hands and feet is much better. She has difficulty bending her right 4th finger DIP, sometimes it pops. No recent infections. Initial history: This is a 72-year-old female with past medical history of anxiety, depression, fibromyalgia, dyslipidemia who presents for evaluation of RA. Patient states she was diagnosed with rheumatoid arthritis in the late by Dr. Tate. ? 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 She did well on Enbrel for more than 10 years, and it was interrupted in 2018 when she had her right knee replacement. When the Enbrel was restarted it was never as efficacious as it was. Was doing well on Humira and leflunomide 10 mg a day however Leflunomide stopped due to neuropathy. Patient stated that she continues to have pain in her thumbs, the outside of her hips worse on the left. She has generalized morning stiffness lasting 15-20 minutes. Patient was diagnosed with neuropathy and leflunomide was discontinued. She had an EMG which showed mild neuropathy per patient. Venlafaxine helped the neuropathy.? Could not tolerate gabapentin.? Amitriptyline was not effective. Patient stated that she was also diagnosed with Sjogren's based on sicca symptoms and salivary gland biopsy. Some of her neuropathy was attributed to Sjogren's. Also over the last year she has been having loose stool and fecal incontinence. She had an endoscopy and manometry studies which showed rectal [facility]. [facility] Medical History Ganglion cyst Fibromyalgia Rheumatoid arthritis Alopecia Kidney disease, chronic, stage III (GFR 30-59 ml/min) Essential (primary) hypertension Visual disturbance Restless leg syndrome PB (obstructive sleep apnea) Anxiety Depression Neutropenia Obesity Hyperlipemia Diabetes Surgical History History of knee replacement History of hysterectomy Hx of colonoscopy Hx of left knee surgery History of surgical removal of ganglion cyst Family History Daughter Osteoporosis Mother Rheumatoid arthritis Maternal Grandmother Rheumatoid arthritis Maternal Grandmother Rheumatoid arthritis Social History Household Members: Children Housing: House Alcohol intake: never Patient Tobacco Use Status: Never used Tobacco Current occupational status: previously employed and retired 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 Female Reproductive History Menstrual Total pregnancies: 1 Ab spontaneous: 1 Review of Systems [facility] [place] Reports arthralgias, Reports limited range of motion and Reports stiffness Physical Exam Vital Signs: Last Vital Signs Pulse 70 10/18/23 13:51 BP 112/62 10/18/23 13:51 Pulse Ox 96 10/18/23 13:51 Oxygen Delivery Method Room Air 10/18/23 13:51 BMI result Body Mass Index 34.4 Const General: cooperative, healthy appearing, comfortable and in distress mild Nutritional Appearance: obese Orientation/consciousness: patient oriented x3 Limitations: no limitations HEENT Head: Yes normocephalic and Yes atraumatic Mouth: moist mucous membranes Resp Effort & Inspection: normal respiratory effort and able to speak in complete sentences Auscultation: clear to auscultation bilaterally Neuro General: patient oriented x3 Extrem Other: Some puffiness of her fingers throughout Right : No wrist swelling or pain with flexion and extension. No tenderness No active synovitis today No wrist swelling, tenderness or pain with range of motion left hand No MTP tenderness today No knee pain with full flexion-extension bilaterally Results Reviewed Results Reviewed: Labs 03/2022? CBC unremarkable Sed rate 24 CMP unremarkable Uric acid 5.4 C3-1 65 normal? C4 of 31 normal? CRP normal QuantiFERON negative Anca screen negative? MPO/PR3/SSA/SSB/CHARISMA negative RF/CCP negative? Nelson normal Hepatitis panel negative IgA 369 (70-320) IgG normal? IgM normal SPEP normal EMG of lower extremity in 2021: Normal Assessment & Plan Assessment & Plan (1) Rheumatoid arthritis: Comment: Seronegative diagnosed 1998 HCQ not cleared by ophthalmology due to eye concerns Enbrel effective for many years until 2018 Humira started around 2018, not as effective Methotrexate intolerant due to brain fog Leflunomide discontinued due to neuropathy Sulfa allergy Prednisone causes mood disorders Actemra 10/2022 - 12/2022 effective but caused itchy skin rash & fatigue Kevzara 06/2023 DC 08/2023 ineffective Rinvoq 08/2023 effective Code(s): M06.9 - Rheumatoid arthritis, unspecified Category: Medical Qualifiers: Rheumatoid arthritis location: multiple sites Rheumatoid factor presence: without rheumatoid factor Qualified Code(s): M06.09 - Rheumatoid arthritis without rheumatoid factor, multiple sites Plan: This is a 73 year old female with a past medical history of seronegative RA/Sjogren's who presents follow-up. She started Rinvoq 15 mg p.o. daily 2 months ago. Feels much better overall. Improved overall joint pain swelling and stiffness. On exam there is no active synovitis. Inflammatory markers are normal. Continue Rinvoq 15 mg p.o. daily Labs before next visit in 3 months (2) Long-term use of immunosuppressant medication: Code(s): Z79.60 - nursing home (current) use of unspecified immunomodulators and immunosuppressants Category: Medical Plan: We again discussed the black box warning associated with JEREMIE inhibitors. Discussed possible mildly increased risk of cardiovascular events, t hromboembolic phenomenon and increased risk of malignancy with Rinvoq. Patient fully aware and understands that in her case the benefits at we her risk Received the Shingrix vaccine years ago We will monitor safety labs for Rinvoq Plan I spent 25 minutes reviewing patient's chart, evaluating patient, ordering diagnostic workup, counseling patient and documenting in the chart Orders: Orders Complete Blood Count Auto Diff 3 Months M06.09 - Rheumatoid arthritis without rheumatoid factor, multiple sites Comprehensive Met. Panel 3 Months M06.09 - Rheumatoid arthritis without rheumatoid factor, multiple sites C Reactive Protein 3 Months M06.09 - Rheumatoid arthritis without rheumatoid factor, multiple sites Erythrocyte Sedimentation Rate 3 Months M06.09 - Rheumatoid arthritis without rheumatoid factor, multiple sites Coding Level of Care Code Est Pt Level 4 (15910) Diagnoses Rheumatoid arthritis of multiple sites with negative rheumatoid factor M06.09 Rheumatoid arthritis location: multiple sites Rheumatoid factor presence: without rheumatoid factor Long-term use of immunosuppressant medication Z79.60
[2023-10-18 13:51] VITALS: BP 112/62; PULSE 70; O2SAT 96; BMI 34.4
== END 2023-10-18 14:24 | disposition home or self-care (01) ==
PROVIDERS: PCP Family Medicine; Visit Provider Student in an Organized Health Care Education/Training Program
DX: M06.09 Rheumatoid arthritis without rheumatoid factor, multiple sites (principal); Z79.60 Long term (current) use of unspecified immunomodulators and immunosuppressants
CPT/HCPCS: 99214

== ENCOUNTER → 2023-10-18 13:44 | Outpatient (BNVA) | payer OTHER, SELFPAY | PROVIDERS: PCP Family Medicine; Visit Provider Student in an Organized Health Care Education/Training Program | DX: M06.09 Rheumatoid arthritis without rheumatoid factor, multiple sites (principal); M79.7 Fibromyalgia; Z79.60 Long term (current) use of unspecified immunomodulators and immunosuppressants | CPT/HCPCS: 99212 ==

== ENCOUNTER 2024-03-11 13:47 | Outpatient (AMB) | payer OTHER, SELFPAY ==
--- NOTE | 2024-03-11 13:52 | A.OFFVIS_ITS ---
Vital Signs 03/11/24 13:55 Height 5 ft 7.5 in Weight 228 lb 2.855 oz BMI 35.2 BP 122/70 Blood Pressure Location Rt brachial Position Sitting Pulse 94 Pulse Source Pulse Oximeter Pulse Oximetry (%) 95 Oxygen Delivery Method Room Air Intake Visit Reasons: RA/conf Intake Note: Patient presents for RA. Allergies naproxen Allergy (Intermediate, Verified 03/11/24 13:55) nausea, vomiting, diarrhea sulfasalazine Allergy (Intermediate, Verified 03/11/24 13:55) itchy indomethacin [From Indocin] Allergy (Unknown, Verified 03/11/24 13:55) Unknown Sulfa (Sulfonamide Antibiotics) Allergy (Unknown, Verified 03/11/24 13:55) Unknown prednisone Adverse Reaction (Mild, Verified 03/11/24 13:55) Swelling zocar Allergy (Unknown, Uncoded 08/14/23 14:32) unknown Medication List - Last Reconciled 03/11/24 by Deneen Triana MD cholecalciferol (vitamin D3) 25 mcg PO DAILY cyanocobalamin (vitamin B-12) 3,000 mcg PO DAILY cyclosporine 0.05% (Restasis) 1 drp ophthalmic (eye) Q12H diclofenac sodium 1% (Arthritis Pain (diclofenac)) 2 grams topical QID ibuprofen 400 mg PO Q8H PRN losartan 50 mg PO DAILY loteprednol etabonate 0.5% (Lotemax) 1 drp ophthalmic (eye) QID magnesium oxide 400 mg PO DAILY metformin 500 mg PO DAILY byjsivob-ati-bgjt-FA-vit K-lut 8 mg iron-400 mcg-50 mcg (Centrum Silver Women) 1 tab PO DAILY omega 2-nns-lmk-fish oil 100-160-1,000 mg (Fish Oil) caps PO DAILY Rinvoq ER (upadacitinib) 15 mg PO DAILY NS simvastatin 5 mg PO DAILY HPI Comments Details: 74-year-old female with seronegative RA returns for follow-up. She remains on Rinvoq 15 mg p.o. daily. She states that 2 months ago she brought an expensive electric Vigix chair that works with artificial [employer] She states that it is very helpful. It has helped the majority of her aches and pains and the tingling and numbness of her feet. Initial history: This is a 72-year-old female with past medical history of anxi ety, depression, fibromyalgia, dyslipidemia who presents for evaluation of RA. Patient states she was diagnosed with rheumatoid arthritis in the late by Dr. Tate. ? 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 She did well on Enbrel for more than 10 years, and it was interrupted in 2018 when she had her right knee replacement. When the Enbrel was restarted it was never as efficacious as it was. Was doing well on Humira and leflunomide 10 mg a day however Leflunomide stopped due to neuropathy. Patient stated that she continues to have pain in her thumbs, the outside of her hips worse on the left. She has generalized morning stiffness lasting 15-20 minutes. Patient was diagnosed with neuropathy and leflunomide was discontinued. She had an EMG which showed mild neuropathy per patient. Venlafaxine helped the neuropathy.? Could not tolerate gabapentin.? Amitriptyline was not effective. Patient stated that she was also diagnosed with Sjogren's based on sicca symptoms and salivary gland biopsy. Some of her neuropathy was attributed to Sjogren's. Also over the last year she has been having loose stool and fecal incontinence. She had an endoscopy and manometry studies which showed rectal [employer]. [facility] Medical History Ganglion cyst Fibromyalgia Rheumatoid arthritis Alopecia Kidney disease, chronic, stage III (GFR 30-59 ml/min) Essential (primary) hypertension Visual disturbance Restless leg syndrome PB (obstructive sleep apnea) Anxiety Depression Neutropenia Obesity Hyperlipemia Diabetes Surgical History History of knee replacement History of hysterectomy Hx of colonoscopy Hx of left knee surgery History of surgical removal of ganglion cyst Family History Daughter Osteoporosis Mother Rheumatoid arthritis Maternal Grandmother Rheumatoid arthritis Maternal Grandmother Rheumatoid arthritis Social History Household Members: Children Housing: House Alcohol intake: never Patient Tobacco Use Status: Never used Tobacco Current occupational status: previously employed and retired 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 Review of Systems [facility] [place] Reports stiffness Physical Exam Vital Signs: Last Vital Signs Pulse 94 03/11/24 13:55 BP 122/70 03/11/24 13:55 Pulse Ox 95 03/11/24 13:55 Oxygen Delivery Method Room Air 03/11/24 13:55 BMI result Body Mass Index 35.2 Const General: cooperative, healthy appearing, comfortable and in distress mild Nutritional Appearance: obese Orientation/consciousness: patient oriented x3 Limitations: no limitations HEENT Head: Yes normocephalic and Yes atraumatic Mouth: moist mucous membranes Resp Effort & Inspection: normal respiratory effort and able to speak in complete sentences Auscultation: clear to auscultation bilaterally Neuro General: patient oriented x3 Extrem Other: Some puffiness of her fingers throughout Right : No wrist swelling or pain with flexion and extension. No tenderness No active synovitis today No wrist swelling, tenderness or pain with range of motion left hand No MTP tenderness today No knee pain with full flexion-extension bilaterally Assessment & Plan Assessment & Plan (1) Rheumatoid arthritis: Comment: Seronegative diagnosed 1998 HCQ not cleared by ophthalmology due to eye concerns Enbrel effective for many years until 2017 Humira started around 2017, not as effective Methotrexate intolerant due to brain fog Leflunomide discontinued due to neuropathy Sulfa allergy Prednisone causes mood disorders Actemra 10/2022 - 12/2022 effective but caused itchy skin rash & fatigue Kevzara 06/2023 DC 08/2023 ineffective Rinvoq 08/2023 effective Code(s): M06.9 - Rheumatoid arthritis, unspecified Category: Medical Qualifiers: Rheumatoid arthritis location: multiple sites Rheumatoid factor presence: without rheumatoid factor Qualified Code(s): M06.09 - Rheumatoid arthritis without rheumatoid factor, multiple sites Plan: This is a 74 year old female with a past medical history of seronegative RA/Sjogren's who presents follow-up. She is on Rinvoq 15 mg p.o. daily. Doing well overall with no active synovitis. Continue Rinvoq 15 mg p.o. daily Labs before next visit in 6 months (2) Long-term use of immunosuppressant medication: Code(s): Z79.60 - residential (current) use of unspecified immunomodulators and immunosuppressants Category: Medical Plan: Previous visits, we discussed the black box warning associated with JEREMIE inhibitors. Discussed possible mildly increased risk of cardiovascular events, thromboembolic phenomenon and increased risk of malignancy with Rinvoq. Patient fully aware and understands that in her case the benefits at we her risk Received the Shingrix vaccine years ago We will monitor safety labs for Rinvoq Plan I spent 25 minutes reviewing patient's chart, evaluating patient, ordering diagnostic workup, counseling patient and documenting in the chart Orders: Orders Comprehensive Met. Panel 6 Months M06.09 - Rheumatoid arthritis without rhe umatoid factor, multiple sites C Reactive Protein 6 Months M06.09 - Rheumatoid arthritis without rheumatoid factor, multiple sites T Spot TB 6 Months Z11.7 - Encounter for testing for latent tuberculosis infection Hepatitis A,B,C Profile 6 Months Z11.59 - Encounter for screening for other viral diseases Complete Blood Count Auto Diff 6 Months M06.09 - Rheumatoid arthritis without rheumatoid factor, multiple sites Erythrocyte Sedimentation Rate 6 Months M06.09 - Rheumatoid arthritis without rheumatoid factor, multiple sites Lipid Panel 6 Months E78.5 - Hyperlipidemia, unspecified Coding Level of Care Code Est Pt Level 4 (38883) Diagnoses Rheumatoid arthritis of multiple sites with negative rheumatoid factor M06.09 Rheumatoid arthritis location: multiple sites Rheumatoid factor presence: without rheumatoid factor Long-term use of immunosuppressant medication Z79.60
[2024-03-11 13:55] VITALS: BP 122/70; PULSE 94; O2SAT 95; BMI 35.2
--- OUTSIDE RECORDS SUMMARY | 2024-03-12 21:48 | XMS_ITS | Continuity of Care Document ---
Author Organization [facility], Synchronized. 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 No Inf ormation aspirin due to gastric bypass Active No Inf ormation NSAIDS (Non-Steroidal Anti-Inflammatory Drug) due to gastric bypass Active No Information nystatin swelling of throat Active No Inform ation CIPROFLOXACIN HCL itching & rash(mild) Active No Information ciprofloxacin itching & rash(mild) Active No Inf ormation shellfish derived rash, itching, angioedema Active No Information PHENYTOIN SODIUM EXTENDED itching Active No Information PHENYTOIN SODIUM itching Active No Informat ion clindamycin itching Active No Information Medications Medication Instructions Dosage Effective Dates (start - stop) Status Comments Pataday Once Daily Relief 0.2 % eye drops instill 1 drop by ophthalmic route every day into affected eye(s) 1.00 drop - Active tamsulosin 0.4 mg capsule take 1 capsule by oral route every day 1/2 hour following the same meal each day 0.4 MG - Active diphenhydramine 12.5 mg/5 mL oral elixir take 20 milliliter by oral route every 4 - 6 hours as needed 50 MG - Active Zyrtec 10 mg tablet take 1 tablet by oral route every day 10 MG - Active ZOLOFT (unknown strength) take 1 tablet by oral route every day Not Available - Active Baqsimi 3 mg/actuation nasal spray spray 1 spray by intranasal route into one nostril once may repeat dose in 15 minutes if inadequate response 3 MG - Active trazodone 50 mg tablet take 1 tablet by oral route 3 times every day after meals 50 MG - Active octreotide acetate 50 mcg/mL injection solution inject 1 milliliter by subcutaneous route 3 times every day 50 MCG - Active Gvoke HypoPen 1-Pack 1 mg/0.2 mL subcutaneous auto-injector inject 0.2 milliliter by subcutaneous route once in the abdomen, thigh, or upper arm may repeat in 15 minutes if inadequate response 1 MG - Active Synthroid 25 mcg tablet take 1 tablet by oral route every day 25 MCG - Active Keppra 100 mg/mL oral solution take 15 milliliter by oral route 2 times every day 1500 MG - Active Maxalt 10 mg tablet take 1 tablet by ORAL route when needed 10 MG - Active acarbose 25 mg tablet take 1 tablet by oral route 3 times every day at the start (with the first bite) of each main meal 25 MG - Active buspirone 10 mg tablet take 1 tablet by oral route 2 times every day 10 MG - Active Xarelto 10 mg tablet take 1 tablet by oral route every day 10 MG - Active irbesartan 300 mg tablet take 1 tablet by oral route every day 300 MG - Active Protonix 40 mg tablet,delayed release take 1 tablet by oral route every day 40 MG - Active Zofran 4 mg tablet take 2 tablet by oral route 2 times every day - Active Compazine 25 mg rectal suppository insert 1 suppository by rectal route 2 times every day 25 MG - Active Vitamin D3 400 unit capsule 1 tablet weekly - Active primidone 50 mg tablet take 1 tablet by oral route 2 times every day 1 tablet - Active nitroglycerin 0.[address] 1 tablet (0.4MG) by sublingual route at the 1st sign of attack; may repeat every 5 min until relief; if pain persists after 3 tablets in 15 min, prompt medical attention is recommended as needed 0.4 MG - Active Spiriva with HandiHaler 18 mcg and inhalation capsules inhale 1 capsule by inhalation route every day using 2 inhalations via handihaler - Active Neurontin 300 mg capsule take 1 capsule by ORAL route 2 times every day 300 MG - Active ZANAFLEX (unknown strength) take 1 capsule by oral route PRN Not Available - Active GlycoTrol 500 mcg-400 mcg-10 mg-400 mg capsule - Active Singulair 10 mg tablet take 1 tablet by oral route every day in the evening 10 MG - Active ProAir RespiClick 90 mcg/actuation breath activated inhale 2 puff by inhalation route every 4 - 6 hours as needed 180 MCG - Active Latuda 60 mg tablet take 1 tablet by oral route every day with food (at least 350 calories) 60 MG - Active atorvastatin 40 mg tablet take 1 tablet (40MG) by oral route every day 40 MG - Active epinephrine 0.3 mg/0.3 mL (1:1,000) IM Pen Injector inject (0.3MG) by intramuscular route once as needed for anaphylaxis - Active Procedures Procedure Date <content ID='ProcedureDescri ption_0' xmlns='urn:[email or web address]-org:v3'>Visual Field Exam W/i&r; Exten Uni Or Bi</content> Offic outpt E M Estab Low-mod 4 OCT Optic Nerve Uni Or Bi Offic/outpt E&m [facility] 2 24 <content ID='ProcedureDescri ption_4' xmlns='urn:[email or web address]-org:v3'>Visual Field Exam W/i&r; Exten Uni Or Bi</content> Offic outpt E M Estab Low-mod 4 OCT Optic Nerve Uni Or Bi Offic/outpt E&m [facility] 2 23 Offic/outpt E&m [facility] 2 22 <content ID='ProcedureDescri ption_9' xmlns='urn:hl7-org:v3'>Visual Field Exam W/i&r; Exten</content> Offic/outpt E&m [facility] 2 21 [facility] 1 Gonioscopy (separt Proc) Gonioscopy (separt Proc) Lawson-08-2021 Postop F[facility] 1 Goniotomy/Trabectome Extracapsular Cataract Remov I 21 Gonioscopy (separt Proc) Postop F/u Visit [facility] 1 Postop F/u Visit [facility] 1 Iol Master Insertion Anterior Segment Aqueous Drain age Dev Internal Approach Extracapsular Cataract Remov I 21 Gonioscopy (separt Proc) Iol Master OCT Optic Nerve Offic/outpt E&m Estab Mod-hi 2 21 Offic/outpt E&m Estab Low-mod 1 Ophth Serv: Med Exam; Comp Est 20 OCT Optic Nerve Offic/outpt E&m Estab Low-mod 0 Gonioscopy (separt Proc) Ophth Serv: Med Exam; Interm E 19 <content ID='ProcedureDescri ption_35' xmlns='urn:hl7-org:v3'>Visual Field Exam W/i&r; Exten</content> Ophth Serv: Med Exam; Comp Est 19 OCT Optic Nerve Ophth Serv: Med Exam; Interm E 18 Ophth Serv: Med Exam; Interm E 18 Ophth Serv: Med Exam; Interm E 18 Gonioscopy (separt Proc) <content ID='ProcedureDescri ption_42' xmlns='urn:hl7-org:v3'>Visual Field Exam W/i&r; Exten</content> Ophth Serv: Med Exam; Interm E 18 Ophth Serv: Med Exam; Comp Est 17 Offic/outpt E&m Estab Minor 10 17 Offic/outpt E&m Estab Low-mod 7 Offic/outpt E&m Estab Mod-mo 2 17 Gonioscopy (separt Proc) Offic/outpt E&m Estab Minor 10 17 Iridotomy/iridectomy By Laser 7 Iridotomy/iridectomy By Laser 7 Gonioscopy (separt Proc) <content ID='ProcedureDescri ption_53' xmlns='urn:[facility]-org:v3'>Visual Field Exam W/i&r; Exten</content> Offic/outpt E&m Estab Mod-mo 2 17 Vi Lacrimal Punctum; By Plug 7 Vi Lacrimal Punctum; By Plug 7 Gonioscopy (separt Proc) Offic/outpt E&m Estab Low-mod 7 Offic/outpt E&m Estab Mod-mo 2 17 Vi Lacrimal Punctum; By Plug 6 Vi Lacrimal Punctum; By Plug 6 Gonioscopy (separt Proc) OCT Optic Nerve Offic/outpt E&m Estab Mod-mo 2 16 Tear Osmolarity Testing Tear Osmolarity Testing Pachymetry Offic/outpt E&m Estab Mod-mo 2 16 Adenovirus Assay W/Optic Offic/outpt E&m Estab Mod-mo 2 16 Offic/outpt E&m Estab Mod-mo 2 14 <content ID='ProcedureDescri ption_72' xmlns='urn:[email or web address]-org:[email or web address]'>Visual Field Exam W/i&r; Exten</content> Offic/outpt E&m Estab Low-mod 3 <content ID='ProcedureDescri ption_74' xmlns='urn:[email or web address]-org:v3'>Visual Field Exam W/i&r; Exten</content> Offic/outpt E&m Estab Low-mod 3 <content ID='ProcedureDescri ption_76' xmlns='urn:hl7-org:v3'>Visual Field Exam W/i&r; Exten</content> Offic/outpt E&m New Mod Sever 3 <content ID='ProcedureDescri ption_78' xmlns='urn:hl7-org:v3'>Visual Field Exam W/i&r; Exten</content> Advance Directives Directive Yes / No Effective Date File Name No Information Encounters Encounter Description Practice Location Reason(s) For Visit Diagnoses Date Provider Providers Copied on Encounter Offic outpt E M Estab Low-mod [facility] [address] [place] [address], [id number], [place] tel:[phone] Central Return (chief complaint) Primary open-angle glaucoma, bilateral, moderate stageOther chronic allergic conjunctivit isOther secondary cataract, bilateral Oct-1 4 Jim Loyd. [address] [place], [address], [place]. tel:[phone] Referring Provider: Rach Fernandez, [address], [place], [address]. tel:[phone] Offic/outpt E&m Estab Mod-hi 2 [facility] [address] [place] [address], [id number], [place] tel:[phone] Central glaucoma (chief complaint) Primary open-angle glaucoma, bilateral, moderate stageOther chronic allergic conjunctivit is Apr- 4 Jim Loyd. [address], [place], [address], [place]. tel:[phone] Referring Provider: Rach Fernandez, [address], [place], [address]. tel:[phone] Offic outpt E M Estab Low-mod [facility] [address], [id number], [place] tel:[phone] Central glaucoma (chief complaint) Primary open-angle glaucoma, bilateral, moderate stage 4 Jim Loyd. [address] [place], [address], [place]. tel:[phone] Referring Provider: Rach Fernandez, [address] [place], [address]. tel:[phone] Offic/outpt E&m Estab Mod-hi 2 [facility] [address], [id number], [place] tel:[phone] [place] glaucoma (chief complaint) Primary open-angle glaucoma, bilateral, moderate stageOther chronic allergic conjunctivit is 3 Jim Loyd. [address] [place], [address], [place]. tel:[phone] Referring Provider: Rach Fernandez, [address] [place], [address]. tel:[phone] Offic/outpt E&m Estab Mod-hi 2 [facility] [address] [place] [address], [id number], [place] tel:[phone] [place] glaucoma (chief complaint) Primary open-angle glaucoma, bilateral, moderate stageOther chronic allergic conjunctivit is 2 Angela Cooley. [address] [place], [address], [place]. tel:[phone] Referring Provider: Yasir Miller, [address] [place], [address]. tel:[phone] Offic/outpt E&m Estab Mod-hi 2 [facility] [address], [id number], [place] tel:[phone] [place] glaucoma (chief complaint) Primary open-angle glaucoma, bilateral, moderate stageOther chronic allergic conjunctivit is 1 Schiffbauer Renee. [address], [id number], [place]. tel:[phone] regulatory compliance manager: Masood Long OD, [address] [facility] [address] [facility], [place], [address]. tel:[phone] ist: Jaison Aceves MD, [address] [place] [address], [place], [address]. tel:[phone] Provider: Ruben Ashraf MD, [address], [address]. tel:[phone] [facility] [address] [place] [address], [id number], [place] tel:[phone] [place] glaucoma (chief complaint) Primary open-angle glaucoma, bilateral, moderate stagePresenc e of pseudophakia Cataract extraction status, left eyeOther chronic allergic conjunctivit is 1 Schiffbauer Renee. [address], [address] [place] [address], [id number], [place]. tel:[phone] regulatory compliance manager: Masood Long OD, [address] [place], [place] [address] [facility], [place], [address]. tel:[phone] ist: Jaison Aceves MD, [address] [place] [address], [place], [address]. tel:[phone] Provider: Ruben Ashraf MD, [address], [address]. tel:[phone] [facility] [address] [place] [address], [id number], [place] tel:[phone] [place] glaucoma (chief complaint) Other chronic allergic conjunctivit isPrimary open-angle glaucoma, bilateral, moderate stagePresenc e of pseudophakia Cataract extraction status, left eye 1 Schiffbauer Renee. [address], [place], [place], [id number], [place]. tel:[phone] Referring Provider: Renee Dean, [address], [place], [address]. tel:[phone] [facility] [address], [id number], [place] tel:[phone] [place] blurry vision (chief complaint) Primary open-angle glaucoma, bilateral, moderate stagePresenc e of pseudophakia 1 Ashu Duran. [address], [address], [place], [place], [id number], [place]. tel:[phone] Referring Provider: Renee Dean, [address], [place], [address]. tel:[phone] [facility] [address], [id number], [place] tel:[phone] [place] blurry vision (chief complaint) Primary open-angle glaucoma, bilateral, moderate stageCatarac t extraction status, left eyePresence of pseudophakia 1 Jose Hernandez. [address], [id number], [place]. tel:[phone] Referring Provider: Ruben Ashraf MD, [address], [address]. tel:[phone] [facility] [address], [id number], [place] tel:[phone] [facility] No Information 1 Narcisa Hung. [address], [address], [place], [id number], [place]. tel:[phone] Referring Provider: Anabell Eli, [address], [place], [address]. tel:[phone] [facility] [address], [place], [place], [id number], [place] tel:[phone] [place] blurry vision (chief complaint) Primary open-angle glaucoma, bilateral, moderate stagePresenc e of pseudophakia Age-related nuclear cataract, left eye 1 Narcisa Hung. [address], [address], [place], [place], [id number], [place]. tel:[phone] Referring Provider: Anabell Eli, [address], [place], [address]. tel:[phone] [facility] [address], [id number], [place] tel:[phone] [place] decreased vision (chief complaint) Primary open-angle glaucoma, bilateral, moderate stagePresenc e of pseudophakia Cataract extraction status, right eye 1 Ashu Duran. [address], [address], [place], [place], [id number], [place]. tel:[phone] regulatory compliance manager: Masood Long OD, [address] [place] [address], [address]. tel:[phone] ist: Jaison Aceves MD, [address] [facility], [place], [address]. tel:[phone] Provider: Ruben Ashraf MD, [address], [address]. tel:[phone] [facility] [address], [address], [place] tel:[phone] [place] No Information 1 Narcisa Hugn. [address], [address], [id number], [place]. tel:[phone] Referring Provider: Anabell lEi, [address] [place] [address], [address]. tel:[phone] [facility] [address] [place] [address], [id number], [place] tel:[phone] [facility] No Information 1 Narcisa Hung. [address], [place], [place], [address], [place]. tel:[phone] Referring Provider: Anabell Brewster Alcira, [address], [place], [address]. tel:[phone] [facility] [address] [place] [address], [id number], [place] tel:[phone] Central Heart disease 1 Nilay Maddox. [address], Suite [facility], [place], [address], [place]. tel:[phone] regulatory compliance manager: Masood Long OD, [address] [facility], [place], [address]. tel:[phone] ist: Jaison Aceves MD, [address] [place] [address] [facility], [place], [address]. tel:[phone] Offic/outpt E&m Estab Mod-hi 2 [facility] [address] [place] [address], [id number], [place] tel:[phone] [place] blurry vision (chief complaint) Primary open-angle glaucoma, bilateral, moderate stageAge-rel ated nuclear cataract, bilateral 1 Narcisa Hung. [address], [address] [place] [address], [id number], [place]. tel:[phone] Referring Provider: Ruben Ashraf MD, [address], [address]. tel:[phone] Offic/outpt E&m Estab Low-mod [facility] [address], [place], [place], [id number], [place] tel:[phone] Central glaucoma (chief complaint) Primary open-angle glaucoma, bilateral, moderate stageAge-rel ated nuclear cataract, bilateral Feb-0 5202 1 Schiffb[address] Renee. [address], [address], [place], [address], [place]. tel:[phone] Referring Provider: Ruben Ashraf MD, [address] [place] [address], [place], [address]. tel:[phone] [facility] [address], [id number], [place] tel:[phone] Central blurry vision (chief complaint) Primary open-angle glaucoma, bilateral, moderate stageDry eye syndrome of bilateral lacrimal glandsAge-re lated nuclear cataract, bilateralOth er chronic allergic conjunctivit isType 2 diabetes mellitus without complication s 0 Schiffbauer Renee. [address], [place], [id number], [place]. tel:[phone] regulatory compliance manager: Masood Long OD, [address] [facility], [place], [address]. tel:[phone] ist: Jaison Aceves MD, [address] [facility], [place], [address]. tel:[phone] ng Provider: Ruben Ashraf MD, [address] [place] [address], [place], [address]. tel:[phone] Offic/outpt E&m Estab Low-mod [facility] [address], [id number], [place] tel:[phone] Central glaucoma (chief complaint) Primary open-angle glaucoma, bilateral, moderate stageDry eye syndrome of bilateral lacrimal glandsAge-re lated nuclear cataract, bilateral Feb-1 2-202 0 Schiffbauer Renee. [address], [place], [place], [id number], [place]. tel:[phone] regulatory compliance manager: Shirley Alvarez, OD, [address] [facility] [address], [place], [address]. tel:[phone] Physician: Ruben Ashraf MD, [address], [address]. tel:[phone] ng Provider: Ruben Ashraf MD, [address] [facility] [address] [place] [address], [address]. tel:[phone] [facility] [address], [id number], [place] tel:[phone] Central Glaucoma, followup (chief complaint) Primary open-angle glaucoma, bilateral, moderate stageAge-rel ated nuclear cataract, bilateralTyp e 2 diabetes mellitus without complication sDry eye syndrome of bilateral lacrimal glands 9 Ashu Duran. [address], [place], [id number], [place]. tel:[phone] regulatory compliance manager: Shirley Alvarez, OD, [address] [facility] [address], [place], [address]. tel:[phone] Physician: Ruben Ashraf MD, [address] [place] [address], [address]. tel:[phone] ng Provider: Ruben Ashraf MD, [address] [facility] [address] [place] [address], [address]. tel:[phone] [facility] [address] [place] [address], [id number], [place] tel:[phone] Central Glaucoma, followup (chief complaint) Primary open-angle glaucoma, bilateral, moderate stageType 2 diabetes mellitus without complication Britton-related nuclear cataract, bilateralDry eye syndrome of bilateral lacrimal glands 9 Fatemeh Jaime . [address], [address], [place]. tel:[phone] regulatory compliance manager: Shirley Alvarez, OD, [address] [facility] [address], [place], [address]. tel:[phone] Physician: Ruben Ashraf MD, [address] [facility] [address] [place] [address], [address]. tel:[phone] ng Provider: Ruben Ashraf MD, [address] [facility] [address], [place], [address]. tel:[phone] [facility] [address] [place] [address], [id number], [place] tel:[phone] Central Glaucoma, followup (chief complaint) Primary open-angle glaucoma, bilateral, moderate stageDry eye syndrome of bilateral lacrimal glands Dec 8 Fatemeh Jaime . [address], [address] [place] [address], [address], [place]. tel:[phone] regulatory compliance manager: Shirley Alvarez, OD, [address] [facility] [address], [place], [address]. tel:[phone] Physician: Ruben Ashraf MD, [address] [place] [address] [place] [address], [address]. tel:[phone] Provider: Ruben Ashraf MD, [address], [address]. tel:[phone] [facility] [address] [place] [address], [id number], [place] tel:[phone] Central Glaucoma, pressure check (chief complaint) Primary open-angle glaucoma, bilateral, moderate stageOther chronic allergic conjunctivit is Oct-0 8 Fatemeh Jaime . [address], [address], [place]. tel:[phone] regulatory compliance manager: Shirley Alvarez, OD, [address] [facility] [address], [place], [address]. tel:[phone] ng Physician: Ruben Ashraf MD, [address] [facility] [address] [place] [address], [address]. tel:[phone] ng Provider: Ruben Ashraf MD, [address] [facility] [address] [place] [address], [address]. tel:[phone] [facility] [address] [place] [address], [id number], [place] tel:[phone] Central Glaucoma (chief complaint) Primary open-angle glaucoma, bilateral, moderate stageOther chronic allergic conjunctivit is 8 Fatemeh Jaime . [address] [place] [address], [address], [place]. tel:[phone] regulatory compliance manager: Shirley Alvarez, OD, [address] [facility] [address], [place], [address]. tel:[phone] Physician: Ruben Ashraf MD, [address], [address]. tel:[phone] ng Provider: Addison Weldon, [address] [place] [address], [address]. tel:[phone] [facility] [address] [place] [address], [id number], [place] tel:[phone] Central Glaucoma, followup (chief complaint) Primary open-angle glaucoma, bilateral, moderate stageType 2 diabetes mellitus without complication s 8 Fatemeh Jaime . [address] [place] [address], [address], [place]. tel:[phone] regulatory compliance manager: Shirley Alvarez, OD, [address] [facility] [address], [place], [address]. tel:[phone] ng Physician: Ruben Ashraf MD, [address] [facility] [address] [place] [address], [address]. tel:[phone] ng Provider: Addison Weldon, [address] [place] [address], [address]. tel:[phone] [facility] [address] [place] [address], [id number], [place] tel:[phone] Central Glaucoma, followup (chief complaint) Primary open-angle glaucoma, bilateral, moderate stageAge-rel ated nuclear cataract, bilateral Fatemeh Jaime . [address] [place] [address], [address], [place]. tel:[phone] regulatory compliance manager: Shirley Alvarez, OD, [address] [facility] [address], [place], [address]. tel:[phone] ng Physician: Ruben Ashraf MD, [address] [facility] [address] [place] [address], [address]. tel:[phone] ng Provider: Ruben Ashraf MD, [address] [place] [address], [address]. tel:[phone] Offic/outpt E&m Estab Minor 10 [facility] [address] [place] [address], [id number], [place] tel:[phone] Central itching and tearing (chief complaint) Acute follicular conjunctivit is, left eyePrimary open-angle glaucoma, bilateral, moderate stage Oct- Fatemeh Jaime . [address], [address], [address], [place]. tel:[phone] regulatory compliance manager: Shirley Alvarez, OD, [address] [facility] [address], [place], [address]. tel:[phone] ng Physician: Ruben Ashraf MD, [address], [address]. tel:[phone] ng Provider: Ruben Ashraf MD, [address] [place] [address], [address]. tel:[phone] Offic/outpt E&m Estab Low-mod [facility] [address] [place] [address], [id number], [place] tel:[phone] Central Conjunctivit is (chief complaint) Acute follicular conjunctivit is, left eye Fatemeh Jaime . [address], [address] [place] [address], [address], [place]. tel:[phone] regulatory compliance manager: Shirley Alvarez, OD, [address] [facility] [address], [address]. tel:[phone] Physician: Ruben Ashraf MD, [address] [place] [address], [address]. tel:[phone] ng Provider: Ruben Ashraf MD, [address] [place] [address], [address]. tel:[phone] Offic/outpt E&m Estab Mod-hi 2 [facility] [address] [place] [address], [id number], [place] tel:[phone] Central Pain and redness (chief complaint) Primary open-angle glaucoma, bilateral, moderate stageAcute follicular conjunctivit is, left eye 7 Cookie Winslow. [address], [address] [place] [address], [id number], [place]. tel:[phone] regulatory compliance manager: Shirley Alvarez, OD, [address] [facility] [address], [place], [address]. tel:[phone] Physician: Ruben Ashraf MD, [address] [place] [address], [address]. tel:[phone] ng Provider: Ruben Ashraf MD, [address] [facility] [address], [place], [address]. tel:[phone] Offic/outpt E&m Estab Minor 10 [facility] [address] [place] [address], [id number], [place] tel:[phone] Central Glaucoma, pressure check (chief complaint) Primary open-angle glaucoma, bilateral, moderate stage Apr-1 4-201 7 Jacques Fontenot. [address], [place], [id number], [place]. tel:[phone] regulatory compliance manager: Shirley Alvarez, OD, [address] [facility] [address], [place], [address]. tel:[phone] Physician: Ruben Ashraf MD, [address], [address]. tel:[phone] ng Provider: Ruben Ashraf MD, [address], [address]. tel:[phone] [facility] [address] [place] [address], [id number], [place] tel:[phone] Central Anatomical narrow angle, left eye Feb-2 0-201 7 Dewundara Nayla. [address], [address] [place] [address], [id number], [place]. tel:[phone] Referring Provider: Ruben Ashraf MD, [address] [facility] [address], [address]. tel:[phone] [facility] [address] [place] [address], [id number], [place] tel:[phone] Central Anatomical narrow angle, bilateral Feb-1 3-201 7 Dewundara Nayla. [address], [id number], [place]. tel:[phone] regulatory compliance manager: Shirley KumariAlvarez, OD, [address] [facility] [address], [place], [address]. tel:[phone] Physician: Ruben Ashraf MD, [address] [place] [address], [address]. tel:[phone] Provider: Ruben Ashraf MD, [address], [address]. tel:[phone] Offic/outpt E&m Estab Mod-hi 2 [facility] [address] [place] [address], [id number], [place] tel:[phone] Central Glaucoma, followup (chief complaint) Primary open-angle glaucoma, bilateral, moderate stageAnatomi yudy narrow angle, bilateral Feb-0 9-201 7 Jacques Fontenot. [address], [address] [place] [address], [id number], [place]. tel:[phone] regulatory compliance manager: Shirley KumariAlvarez, OD, [address] [facility] [address], [place], [address]. tel:[phone] Physician: Ruben Ashraf MD, [address] [place] [address], [address]. tel:[phone] Provider: Ruben Ashraf MD, [address] [place] [address], [address]. tel:[phone] Offic/outpt E&m Estab Low-mod [facility] [address] [place] [address], [id number], [place] tel:[phone] [facility] Central dry eyes (chief complaint) Dry eye syndrome of left lacrimal glandDry eye syndrome of right lacrimal glandPrimary open-angle glaucoma, bilateral, moderate stage Yan-2 3-201 7 Craig Suero. [address], [address] [place] [address], [id number], [place]. tel:[phone] regulatory compliance manager: Shirley Alvarez, OD, [address] [facility] [address], [place], [address]. tel:[phone] ng Physician: Ruben Ashraf MD, [address] [place] [address], [address]. tel:[phone] Provider: Ruben Ashraf MD, [address], [address]. tel:[phone] Offic/outpt E&m Estab Mod-hi 2 [facility] [address] [place] [address], [id number], [place] tel:[phone] [facility] Central pain (chief complaint) Dry eye syndrome of bilateral lacrimal glandsPrimar y open-angle glaucoma, moderate stage 2 7 Craig Suero. [address], [address], [id number], [place]. tel:[phone] regulatory compliance manager: Shirley Alvarez, OD, [address] [facility] [address], [place], [address]. tel:[phone] ng Provider: Ruben Ashraf MD, [address] [place] [address], [address]. tel:[phone] Offic/outpt E&m Estab Mod-hi 2 [facility] [address] [place] [address], [id number], [place] tel:[phone] Central Itching/ dryness (chief complaint) Dry eye syndrome of bilateral lacrimal glandsPrimar y open-angle glaucoma, moderate stage 0- 6 Jacques Fontenot. [address], [address] [place] [address], [id number], [place]. tel:[phone] Referring Provider: Ruben Ashraf MD, [address], [address]. tel:[phone] Offic/outpt E&m Estab Mod-hi 2 [facility] [address] [place] [address], [id number], [place] tel:[phone] Central Pain & Redness (chief complaint) Scleritis of right eyeOpen angle with borderline findings, high risk, bilateralDry eye syndrome of bilateral lacrimal glands Jul- 6 Jacques Fontenot. [address], [address] [place] [address], [id number], [place]. tel:[phone] regulatory compliance manager: Shirley Alvarez, OD, [address] [facility] [address], [place], [address]. tel:[phone] Provider: Ruben Ashraf MD, [address] [facility] [address], [place], [address]. tel:[phone] Offic/outpt E&m Estab Mod-mo 2 [facility] [address] [place] [address], [id number], [place] tel:[phone] Central Pain and redness (chief complaint) Scleritis of right eye Jul- 6 Narcisa Hung. [address], [address] [place] [address], [id number], [place]. tel:[phone] regulatory compliance manager: Shirley Alvarez, OD, [address] [facility] [address], [place], [address]. tel:[phone] Provider: Ruben Ashraf MD, [address] [facility] [address], [place], [address]. tel:[phone] Offic/outpt E&m Estab Mod-hi 2 [facility] [address] [place] [address], [id number], [place] tel:[phone] Central Blurry vision (chief complaint) Pituitary adenomaPtosi s of eyelidOpn Angl W Borderln Find Oct-2 4 Kaliacecile Loving. [address], [address], [id number], [place]. tel:[phone] Referring Provider: Ruben Ashraf MD, [address] [place] [address], [address]. tel:[phone] Offic/outpt E&m [facility] [address], [place], [id number], [place] tel:[phone] Central Brain Neoplasm Nos 3 Kaliacecile Loving. [address], [address], [id number], [place]. tel:[phone] Referring Provider: Ruben Ashraf MD, [address] [place] [address], [address]. tel:[phone] Offic/outpt E&m [facility] [address] [place] [address], [id number], [place] tel:[phone] Central Brain Neoplasm Nos 3 Kalia Inder. [address], [address], [id number], [place]. tel:[phone] Referring Provider: Ruben Ashraf MD, [address] [place] [address], [address]. tel:[phone] [facility] [address] [place] [address], [id number], [place] tel:[phone] Central No Information 3 Kalia Loving. [address], [id number], [place]. tel:[phone] Offic/outpt E&m [facility] [address], [id number], [place] tel:[phone] Central Brain Neoplasm Nos 3 Kalia Loving. [address], [id number], [place]. tel:[phone] Referring Provider: Ruben Ashraf MD, [address], [address]. tel:[phone] [facility] [address], [id number], [place] tel:[phone] [place] No Information 3 Kalia Loving. [address], [place], [place], [id number], [place]. tel:[phone] Family History Family Member Type Diagnosis Age At Onset Mother Problem (finding) blindness Mother Problem (finding) cataract Brother Problem (finding) diabetes melli tus in first degree relative Multiple Problem (finding) Heart Disease Brother Problem (finding) Strabismus Multiple Problem (finding) asthma Multiple Problem (finding) HBP Mother Problem (finding) Asthma Mother Problem (finding) Arthritis Payers Payer name Insurance type Covered republican ID Authoriza tion(s) [place] [id number] [facility] Medicaid [id number] Social History Type Description Quantity Date Captured Comments Alcohol Use Details No Caffeine Use Details No Tobacco Use Status Current non-smoker Smoking Status Never smoker Sex Female Chief Complaint And Reason For Visit From encounter dated '01/18/2024 08:05'. Return (chief complaint). Description: The 73 year old patient presents for evaluation of 6-9 months IOP/DFE/24-2/Fundas photos in the right eye and left eye. Pt reports no changes to vision since she was last seen. Pt denies any eye pain, discomfort or redness. Pt reports that she has just been having a lot of tearing recently from allergy season. Pt denies floaters or flashes. Current gtts Refresh PRN Reason For Referral Reason For Referral No Information Plan Of Treatment Date Type Action Status Appointment Shima Dsouza BOOKED Appointment Shima Dsouza BOOKED Patient Education Open-Angle Glaucoma: Ca re Instructions completed Patient Education Learning About Benefits From Quitting completed History Of Present Illness Encounter Date Complaint History Of Prese nt Illness Return The 73 year old patient presents for evaluation of 6-9 months IOP/DFE/24-2/Fundas photos in the right eye and left eye. Pt reports no changes to vision since she was last seen. Pt denies any eye pain, discomfort or redness. Pt reports that she has just been having a lot of tearing recently from allergy season. Pt denies floaters or flashes. Current gtts Refresh PRN glaucoma The 73 year old patient presents for evaluation of glaucoma in the right eye and left eye. It affects superiorly. The symptom is constant. The condition is stable.Pt reports for IOP check and OCT-G. Pt reports vision stable. Pt currently not on treatment for glaucoma, h/o Hydrus stent (2020). Pt reports redness tearing and itchiness OU due to allergies. Pt reports using ATs BID OU with improvement in symptoms. Pt denies flashes and floaters. glaucoma The 73 year old patient presents for evaluation of glaucoma in the right eye and left eye. It affects OU. The symptom is constant. The condition is moderate.Pt presents in office today for a 6month 24-2 and DFE w/CASTELLANOS. PT states VA is doing good. Pt states eyes do get itchy, but states it is from allergies. Pt is not using any gtts. PT denies any flashes/floaters in vision. Pt denies any ocular pain.-IOP Target: Mid Teens glaucoma The 72 year old patient presents for evaluation of glaucoma in the right eye and left eye. It affects OU. The symptom is constant. The condition is significant.Pt presents in clinic today for 6 months IOP check/OCTG w/CASTELLANOS. Pt has POAG bilateral, moderate stage. Last IOP 11/13 on (03-20-22) Target: mid teens. Pt reports vision is clear OU. Pt report no changes in vision since last visit OU. Pt reports itching/burning OU. Pt reports occasional dryness OU. Pt reports occasional tearing OU. Pt reports occasional floaters OD. Pt denies pain and flashes OU. Pt reports using Bepreve QD OU. glaucoma The 72 year old female presents for evaluation of glaucoma in the right eye and left eye. It started about 6 month(s) ago. It affects OU. The condition is stable.Patient presents for glaucoma follow up with DFE with Angela. Patient states that vision is stable since last eye exam. Patient does not take medicated eye gtts. Patient denies flashes, floaters, eye pain, itching, burning, tearing.Las,Surg: Yag PI OD (2.13.17) w/ DEWYag PI OS (2..) w/ DEWhydrus gel stent (6.. w/ SECTIONIZER, CE phaco w/ goniotomy (.05.23) w/ SECTIONIZER glaucoma The 71 year old female presents for evaluation of primary open angle glaucoma, moderate stage in the right eye and left eye. Target IOP mid teens. Patient denies decrease in vision, pain or pressure. Bepreve PRN OU glaucoma The 70 year old female presents for evaluation of glaucoma in the right eye and left eye. It affects OU. The symptom is constant. The condition is significant.Pt presents in clinic for 4-6 wk s/p phaco + goniotomy OS/phaco + hydrus OD w/SECTIONIZER. Pt has moderate POAG OU. Pt reports no eye drops right now. Pt reports constant itching and burning OU since 8.25.21 d/t allergies to grass. Pt reports needing allergy eye drop or some tx. Pt reports okay VA OU and no pain/discomfort other cortez.- s/p Yag PI OD 05/15/2016 (Dr. Gary)- s/p Yag PI OS 05/22/2016 (Dr. Gary)- s/p Standard Monofocal IOL w/ Hydrus Gel Stent oD 09/14/2020 (Dr. Brewster)- s/p CE phaco IOL w/ goniotomy OS 10/01/20 Dr. Brewster glaucoma The 70 year old female presents for evaluation of glaucoma in the right eye and left eye. It affects OU. The symptom is constant. The condition is significant. PT presents in clinic today 2-3 weeks s/p phaco w/goniotomy OS/ phaco w/ hydrus OD, gonio w/JADE.PT reports no change in VA. PT reports occasional dryness and irritation. PT reports she feels like she is progressively getting better. PT denies FB sensation. PT denies floaters, flashes of light and pain. PT reports she is very satisfies with the procedure. PT reports Ketorolac QID OS, Prednisolone QID OS and Pilocarpine 1% BID OS.- s/p Yag PI OD 05/15/2016 (Dr. Gary)- s/p Yag PI OS 05/22/2016 (Dr. Gary)- s/p Standard Monofocal IOL w/ Hydrus Gel Stent OD 09/14/2020 (Dr. Brewster)- s/p CE phaco IOL w/ goniotomy OS 10/01/20 Dr. Brewster blurry vision PT presents for 1 week POV -s/p CE phaco IOL w/ goniotomy OS 10/01/20. -s/p CE standard PCIOL + hydrus OD Dr. Brewster 09.14.20.states VA OS is not as clear as OD. Patient is Tobramycin QID OS, Ketorolac QID OU, Prednisolone QID OU, and Pilocarpine BID OS. - s/p Yag PI OD 05/15/2016 (Dr. Gary)- s/p Yag PI OS 05/22/2016 (Dr. Gary)The 70 year old female presents for evaluation of blurry vision in the right eye and left eye. The onset was progressive. It affects OU. The symptom is constant. The condition is improving. blurry vision Pt presents for same day ( surgery at Noon) POV s/p CE SN60WF OS +20.00 (goal 0.01) standard IOL. Pt notes no changes in her VA OD , still fuzzy. Pt denies any pain or discomfort (redness, itching, irritation, dryness, grittiness or burning) OU. Pt is compliant w/ gtt, Tobramycin QID x 1 week, Ketorolac QID OD and Prednisolone QID OD and Latanoprost QHS OS.- s/p SN60WF OD +20.50 (goal 0.01) standard IOLThe 70 year old female presents for evaluation of blurry vision in the right eye. It affects both near and far vision. The symptom is constant. The condition is not any better. blurry vision decreased vision The 70 year old female presents for evaluation of decreased vision in the right eye and left eye. The onset was this morning. It affects OU. The symptom is constant.Patient presents to clinic for 1 day s/p hydrus and cat stand OD w/ JADE. Patient states that her vision has been stable with no pain, only irritation w/ Ketorolac drops. Currently taking Ketorolac , tobramycin, prednisolone OD TID as prescribed s/p sx. 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 Patient complains of blurry vision in the right eye and left eye. It started about 6 month(s) ago. It affects both near and far vision. The symptom is constant. Patient notes that it takes her eyes several minutes to come in to focus when she is looking at/for things. Dorzolamide BID OULatanoprost QHS OUAlphagan P QAM OD glaucoma Pt presents for 4 months VF 24-2, IOP check. Pt has hx of POAG OU, moderate stage. Last IOP 16/15 on 12/10/19. Target IOP midteens. Pt using Dorzolamide BID OU, Latanoprost QHS OU, ATs PRN OU, Pazeo QD OU. Pt complains of not being able to see things in near vision. Pt complains of blurry vision and thinks cataracts are worsening, states cataract is blocking my pupil . Pt complains of occasional floaters. Pt complains of some tearing throughout the day. Pt denies glares/halos, pain/irritation, flashes.Pt needs prescriptions for all drops sent to [facility] in [place].Pt has hx of diabetes. Last b/s 106 on 2/5AM. Last A1C 5.1 on 09/15/2019.The 70 year old female presents for evaluation of glaucoma in the right eye and left eye. It affects OU. The symptom is constant. The condition is significant. blurry vision The 69 year old female presents for evaluation of blurry vision in the right eye and left eye. It affects OU. The symptom is constant. The condition is mild.Pt returns to clinic for DFE/BAT exam today, with JADE. Pt lost her glasses recently and she has an appointment with her regulatory compliance manager in December to get new glasses - old pair of glasses today. Pt denies any changes to her vision. Pt denies any new flashes of light/new floaters. Pt c/o of allergies and some dryness and irritation - wants new prescription for Pazeo today if possible.Ocular Hx:-Primary open-angle glaucoma, bilateral, moderate stageOcular Meds:-Dorzolamide BID OU-Latanoprost QHS OULBS: 119mg/dL, last A1C was low about 2 months glaucoma Pt [facility] IOP check and OCT-g with JADE in regards to moderate stage POAG OU. Pt states she has some occasional blurry vision blinking helps. Pt is using Dorzolamide BID OU (10am) and Latanoprost QHS OU (did not take last night). Pt denies pain, discomfort or irritation. Pt last BS was 100 and A1C was 5.1 04/2019.The 69 year old female presents for evaluation of glaucoma in the right eye and left eye. It affects OU. The symptom is constant. The condition is moderate. Glaucoma, followup Pt presents f or 4 month f/u for Glaucoma and for ongoing glare and blurred vision from cataracts. Pt notes her vision seems about the same since last visit. Pt does need a new pair of glasses, current Rx is about 5 yrs old Target IOP: Mid to low teens. Pt continues on Dorzolamide BID and Latanoprost QHS OU The 68 year old female presents for evaluation of Glaucoma, followup in the right eye and left eye. It started about 23 year(s) ago. The onset was gradual. It affects OU. The symptom is constant. The condition is stable. Glaucoma, followup Pt presents f or 4 month f/u and VF testing for Glaucoma. Pt continues with Dorzolamide BID OU, Latanaprost QHS OU. Pt states she has been taking her gtts with better compliance lately. Pt is using Pazeo which is working well for allergic symptoms. Pt is having a lot of itching and burning with the pollen.The 68 year old female presents for evaluation of Glaucoma, followup in the right eye and left eye. It started about 16 year(s) ago. The onset was gradual. It affects VA not affected. The symptom is constant. The condition is moderate. Glaucoma, followup Pt presents f or 2 month f/u for glaucoma after stopping Levobunolol and starting Dorzolamide BID OU along with Latanaprost QHS OU and Pazeo Pt notes some intermittent blurry vision lasting only a few minutes when she is reading. she notes it does clear after blinking alot. Pt is not using any AT's. Currently using dorzolamide BID OU, latanoprost QHS OU, Pazeo QD OUThe 68 year old female presents for evaluation of Glaucoma, followup in the right eye. It started about 2 year(s) ago. It affects OU. The symptom is constant. The condition is stable. Glaucoma, pressure check The 67 year old female presents for evaluation of Glaucoma, pressure check in the right eye and left eye. It started about 6 week(s) ago. The symptom is constant. The condition is moderate. Patient is here for an intraocular pressure check of both eyes. She is with history of Moderate Stage Primary open-angle glaucoma in both eyes. She mentions that her eyes appears to be doing well, and she is compliant with her Latanoprost. However, she is using her sample of Pazeo and would like refills. She mentions that allergy eyes seems to be doing much better. She has been using both Latanoprost and Pazeo as instructed, but her vision seems to be flucuation at times. Her blood sugar at 9:00am was 180. Glaucoma Pt presents for 4 month BAT and gonio due to POAG moderate stage OU. Pt is taking latanoprost QHS OU but hasn't taken it in the past 4 days because her allergies flared up which she thought would've washed the drops out of her eye. Pt stopped taking levobunol last time. Pt complains of itchy eyes when going outside, takes benadryl and Zyrtec and flonase for it. Pt feels that vision is stable, blurry recently due to allergies. The 67 year old female presents for evaluation of Glaucoma in the right eye and left eye. It started about 5 year(s) ago. The symptom is constant. The condition is stable. Glaucoma, followup The 67 year o ld female presents for evaluation of Glaucoma, followup in the right eye and left eye. It occurs all the time. It affects VA not affected. The symptom is constant. The condition is moderate. Pt reporting for dilated eval of both eyes with need for 24-2 due to history of POAG moderate stage OU. Pt has no current target IOP at this time. Pt is taking Latanoprost QHS OU and mentions she is also taking Levobunolol BID OU. Pt denies any changes to vison since last seen. Pt last blood sugar measuring 98 at 12:30pm today and 131 fasting this morning. Glaucoma, followup The 67 year o ld female presents for evaluation of Glaucoma, followup in the right eye and left eye. It affects OU. The symptom is constant. The condition is moderate. Pt presents for IOP check, OCT-G and DFE in regards to moderate stage POAG OU. Pt's IOP's were 12 OU by [facility] on last exam. Pt is currently using Lumigan QHS OU (10pm), pt states very compliant w/ gtts. Pt c/o blurrier VA OU since last visit from cataracts. Pt c/o increased problems with glare from bright lights. Pt denies pain or discomfort OU. Pt denies flashes of lights, c/o new floater interfering w/ VA OD. Pt c/o OD was red x 3 days last week but symptoms have gone away. Pt c/o an increase in tearing OU x 2 weeks, not currently using art tears. Pt c/o itching OU, not using art tears. Pt has Hx of acute follicular conjunctivitis. itching and tearing The 66 year old female presents for evaluation of itching and tearing in the left eye. It occurs all the time. It affects OS. The symptom is constant. Pt is here for a 3 weeks f/u w/ KRU. Pt states vision is w/o change. Pt states occasional itching OS. Pt states occasional tearing OU. Pt states when she wakes up in AM she has a clear discharge in corner of OS. Pt denies any redness OU. Pt states light sensitivity OU. Pt denies any burning, colorful discharge, flashes of lights or new floaters. Pt is taking OTC antihistamine Zaditor BID OUPt is taking Latanoprost QHS OU Conjunctivitis The 66 year old female presents for evaluation of Conjunctivitis in the left eye. It occurs all the time. It affects OS. The symptom is constant. The condition is improving. Pt presents for Conj OS check. Pt is using Erythromycin, Valtrex, A.T as directed. Pt did not receive Vigamox from pharmacy due to insurance issues. Pt is requesting sample of antibiotic today. Pt states the pain and burning OS has subsided but the eye is still draining, redness and itching. Pt c/o itching OD that started 24 hours ago. Pt states her vision is still slightly blurry OS. Pain and redness The 66 year old female presents for evaluation of Pain and redness in the left eye. It started about 1 day(s) ago. It occurs all the time. It affects OS. The symptom is constant. The condition is worsening. Pt presents w/ c/o red eye with swelling ULL and BLL accompanied by excessive tearing and pain (10 on a 1-10 scale) OS, which started last night around 8pm and has been getting progressively worse. Pt states OS was glued shut this am when she woke up. Pt c/o decreased VA OS and extremem photophobia. Pt started warm compresses, states eye seems to be getting more painful as time goes on. 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 Pt denies recent cold/flu, contact w/ young children or swimming in public pool. Pt used LAtanoprost QHS OU last night at 10:30. Pt signed ABN for Adeno test. Glaucoma, pressure check The 66 year old female presents for evaluation of Glaucoma, pressure check in the right eye and left eye. It affects OU. The symptom is constant. The condition is significant. Pt is here for an IOP check and f/u exam. She is s/p YAG PI OD 05/15/16 ([facility]) and s/p YAG PI OS 05/22/16 ([facility]). No ocular pain or discomfort. Using latanoprost QHS OU as directed (using instead of Lumigan). Glaucoma, followup The 66 year o ld female presents for evaluation of Glaucoma, followup in the right eye and left eye. It occurs all the time. It affects VA not affected. The symptom is constant. The condition is moderate.Pt sent by Dr. Nieves for evaluation of narrow angles. 24-2 z/ifd. Pt has blurring and double vision OD>OS. Pt had pain OU previously but has resolved. Pt notices flashes and floaters OS>OD. Pt denies redness and itching. Pt using Levobunolol OU BID. Pt states she is compliant dry eyes The 66 year old female presents for evaluation of dry eyes in the right eye and left eye. It occurs all the time. It affects OU. The symptom is constant. The condition is improving. Pt presents today for JURGEN and possible plugs. Pt states the dry eyes feel a little better. Pt used sample of Lotemax BID OU until it ran out on 04.22.17- medication is too expensive for pt to purchase. Pt is using Levobunolol as prescribed. Pt denies pain or discomfort presently. Pt states the vision has improved since last visit. pain The 66 year old female presents for evaluation of pain in the right eye and left eye. It started about 4 day(s) ago. It occurs all the time. It affects OU. The symptom is constant. The condition is not any better. Pt states on the 30 of March, OU started stinging and burning really bad after using her drops. Pt states OU had a glossy film. Pt states she then noticed a dark brown spot on OU that wasn't there before. Pt states aching OU. Pt states tearing OU. Pt states burning/ redness OU. Pt states itchiness OU. Pt states blurry vision OU. Pt states around sunday she started to notice a couple small new floaters OS. Pt stopped taking drops due to symptoms. Itching/ dryness The 65 year old female presents for evaluation of Itching/ dryness in the right eye and left eye. It started about 1 year(s) ago. The symptom is constant. The condition is moderate. Pt is not currently using any gtts to relieve the symptoms at this time. Pt would like to try punctal plugs.Pt has noticed problems with glare OU. Pain & Redness The 65 year old female presents for scleritis OD evaluation of Pain & Redness in the right eye, referral from [facility]. It started about 2 week(s) ago. The onset was progressive. It affected OD initially but not now. The symptom is constant. The condition is improving - there is no tooth ache pain now and the redness is only present in temporal area now.Pt is also aware of itchiness and tearing which she feels is related to her allergies.Lab results under 07/12/15.No flashes or new floaters. Pain and redness The 65 year old female presents for evaluation of Pain and redness in the right eye. It started about 2 day(s) ago. The onset was upon awakening. The symptom is constant. The condition is worsening. Pt. reports of pink coloring of scelera upon awakening, on Sun morning. Pt. reports of severe pain that woke her up in OD. Pt. reports of having blurred near and distance vision,OU. Pt. has refrain from taking ocular medications, OU for the last couple of days since she was unsure of what she should do. Pt. also reports of tearing in OD over the last couple of days. Pt. denies any photophobia or discharge,OU. Pt. states that she fell and hit her head 4 feet up against the wall about 2 weeks ago. Blurry vision The 63 year old female presents for evaluation of Blurry vision in the right eye and left eye. Pt is followed for possible visual effects of pituitary adenoma, removed 08/20/12. No visual effects seen on preior testing here. Pt states that she is doing well since she was in last. Pt denies pain or discomfort but state vision is still blurry due to pt needing glasses. Functional Status Date Functional Assessmen t No Information Instructions Date Instruction Additional Infor mation Impression/Plan Related to Other chronic allergic conjunctivitis Impression/Plan Related to Other secondary cataract, bilateral Impression/Plan Related to Prima ry open-angle glaucoma, bilateral, moderate stage Impression/Plan Related to Prima ry open-angle glaucoma, bilateral, moderate stage Impression/Plan Related to Other chronic allergic conjunctivitis Impression/Plan Related to Prima ry open-angle glaucoma, bilateral, moderate stage Impression/Plan Related to Other chronic allergic conjunctivitis Impression/Plan Related to Prima ry open-angle glaucoma, bilateral, moderate stage Impression/Plan Related to Prima ry open-angle glaucoma, bilateral, moderate stage Impression/Plan Related to Other chronic allergic conjunctivitis Impression/Plan Related to Other chronic allergic conjunctivitis Impression/Plan Related to Prima ry open-angle glaucoma, bilateral, moderate stage Return in 1 Related to Prima ry open-angle glaucoma, bilateral, moderate stage Impression/Plan Related to Other chronic allergic conjunctivitis Impression/Plan Related to Prima ry open-angle glaucoma, bilateral, moderate stage Impression/Plan Related to Prese nce of pseudophakia Impression/Plan Related to Catar act extraction status, left eye RTC Related to Other chronic allergic conjunctivitis Impression/Plan Related to Other chronic allergic conjunctivitis Impression/Plan Related to Prima ry open-angle glaucoma, bilateral, moderate stage Impression/Plan Related to Prese nce of pseudophakia Impression/Plan Related to Catar act extraction status, left eye 2-3 weeks s/p Phaco w/goniotomy OS/ phaco w/ hydrus OD, gonio/AC check Related to Primary open-angle glaucoma, bilateral, moderate stage Impression/Plan Related to Prima ry open-angle glaucoma, bilateral, moderate stage Impression/Plan Related to Prese nce of pseudophakia KNA Related to Prima ry open-angle glaucoma, bilateral, moderate stage Impression/Plan Related to Prima ry open-angle glaucoma, bilateral, moderate stage Impression/Plan Related to Prese nce of pseudophakia Impression/Plan Related to Catar act extraction status, left eye Impression/Plan Return in Related to Prima ry open-angle glaucoma, bilateral, moderate stage Impression/Plan Related to Prima ry open-angle glaucoma, bilateral, moderate stage Impression/Plan Related to Catar act extraction status, right eye Impression/Plan Related to Prese nce of pseudophakia RTC Related to Heart disease Impression/Plan Related to Heart disease Impression/Plan Related to Age-r elated nuclear cataract, bilateral Impression/Plan Return in Related to Prima ry open-angle glaucoma, bilateral, moderate stage Impression/Plan Related to Age-r elated nuclear cataract, bilateral Impression/Plan Related to Prima ry open-angle glaucoma, bilateral, moderate stage 1) Related to Prima ry open-angle glaucoma, bilateral, moderate stage Impression/Plan Related to Prima ry open-angle glaucoma, bilateral, moderate stage Impression/Plan Related to 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 Impression/Plan Related to Age-r elated nuclear cataract, bilateral Impression/Plan Related to Other chronic allergic conjunctivitis Impression/Plan Related to Type 2 diabetes mellitus without complications - Related to Prima ry open-angle glaucoma, bilateral, moderate stage Impression/Plan Related to Age-r elated nuclear cataract, bilateral Impression/Plan Related to Prima ry open-angle glaucoma, bilateral, moderate stage Impression/Plan Related to 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 Return in Related to Prima ry open-angle glaucoma, bilateral, moderate stage Impression/Plan Related to 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 Impression/Plan Related to Age-r elated nuclear cataract, bilateral Impression/Plan Related to Type 2 diabetes mellitus without complications Impression/Plan Related to Prima ry open-angle glaucoma, bilateral, moderate stage Return in Related to Prima ry open-angle glaucoma, bilateral, moderate stage Impression/Plan Related to Prima ry open-angle glaucoma, bilateral, moderate stage Impression/Plan Related to 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 Related to Dry eye syndrome of bilateral lacrimal glands Impression/Plan - IO P: OCTG (03.11.18): OD: borderline sup, stable//OD: borderline solomon, [id number] (07/09/17): OD: moderate FL FP FN scattered defects more inf not specific // OS: good reliability scattered not specific defects, stableTmax: Target: mid-low teensStable: YesGlaucoma stage: OU:moderateGlaucoma Co-managed: NoF/U-Comanage plan: InternalSpecial notes:Discussed glaucoma diagnosis and effect it may have on visual acuity and quality of life. Advised patient of today's IOP. Instructed patient to continue Dorzolamide BID OU and Latanoprost QHS OU. Will schedule glaucoma testing and exams to monitor. Related to Primary open-angle glaucoma, bilateral, moderate stage - Related to Prima ry open-angle glaucoma, bilateral, moderate stage Impression/Plan - Ed ucated patient on allergic findings. Advised patient to begin using Pazeo QD OU(eRxed). Will monitor. Related to Other chronic allergic conjunctivitis Impression/Plan - IO P: -2 (07/09/17): OD: moderate FL FP FN scattered defects more inf not specific // OS: good reliability scattered not specific defects, stableTmax: Target: TBDStable: YesGlaucoma stage: OU:moderateGlaucoma Co-managed: NoF/U-Comanage plan: InternalSpecial notes:Informed patient of glaucoma diagnosis and effect it may have on visual acuity and quality of life. Advised patient of today's IOP. Instructed patient to continue Latanoprost QHS OU. Patient was instructed to start Levobunolol QAM OU(eRxed). Will schedule glaucoma testing and exams to monitor. Related to Primary open-angle glaucoma, bilateral, moderate stage 6 weeks for IOP chec k and K check with KRU Related to Primary open-angle glaucoma, bilateral, moderate stage Impression/Plan - Ed ucated patient on allergic findings. Gave sample of (eRxed) Pazeo QD OU and told her about A[place]ay, twice a day, if insurance won't be able to get Pazeo. Related to Other chronic allergic conjunctivitis Impression/Plan - IO P: -2 (07/09/17): OD: moderate FL FP FN scattered defects more inf not specific // OS: good reliability scattered not specific defects, stableTarget:Stable: YesGlaucoma stage: OU:moderateGlaucoma Co-managed: NoF/U-Comanage plan: InternalSpecial notes:Informed patient of glaucoma diagnosis and effect it may have on visual acuity and quality of life. Advised patient of today's IOP. Patient to continue Latanoprost QHS OU. Will schedule glaucoma testing and exams to monitor. Related to Primary open-angle glaucoma, bilateral, moderate stage Return in 3-4 Related to Prima ry open-angle glaucoma, bilateral, moderate stage Impression/Plan - IO P: 12/1023-2 shows: OD: moderate FL FP FN scattered defects more inf not specific // OS: good reliability scattered not specific defects, stableTarget:Stable: YesGlaucoma stage: OU:moderateGlaucoma Co-managed: NoF/U-Comanage plan: InternalSpecial notes:Informed patient of glaucoma diagnosis and effect it may have on visual acuity and quality of life. Advised patient of today's IOP. Discussed 24-2 findings with patient. Patient has been taking Latanoprost QHS OU and Levobunolol BID OU. Will do a trial off of Levobunolol. Patient to discontinue Levobunolol and continue Latanoprost QHS OU. Will schedule glaucoma testing and exams to monitor. Related to Primary open-angle glaucoma, bilateral, moderate stage Impression/Plan - Pa tient was not dilated at this appointment. Will monitor. Related to Type 2 diabetes mellitus without complications Return in Related to Prima ry open-angle glaucoma, bilateral, moderate stage Impression/Plan - IO P: /OCT G: (02.27.17) OD: borderline sup- stable OS: borderline solomon- stableC/D: .8/.824-2 (2.9.17): Few FPs, significant FLs, Full OUTarget: Pachy: 484/486T max: FH: Gonio (417): OU: Grade 2, 2+ pigmentH/o gtt: Gtt allergies: Levobunolol (red)Las/Surg:IOP doing well today. Continue Latanoprost QHS OU. Related to Primary open-angle glaucoma, bilateral, moderate stage Impression/Plan - Ea rly cataracts were noted on today's exam. Cataracts are not visually significant to constitute extraction at this time. Patient advised to watch for decrease in vision and an increase in glare and halos at night, which would indicate progression of the cataracts. Will consider extraction of cataracts when decrease in vision begins to affect quality of life. Related to Age-related nuclear cataract, bilateral - Related to Acute follicular conjunctivitis, left eye Impression/Plan - Pa tient is to continue taking 10 day course of Valtrex finishas previously directed. Informed patient of continuing with good hygiene. Patient to use artificial tears and an OTC antihistamine Zaditor or [place] BID OU taper off as needed if the eyes are feeling better. Condition is improved, there was no AV test in office at last visit. Related to Acute follicular conjunctivitis, left eye Impression/Plan - IO P today: 03/13Current gtt: Lumigan QHS OUC/D: .8/.824-2 (2.9.17): Few FPs, significant FLs, Full OUOCT (date):Target: Pachy: 484/486T max: FH: Gonio (07.14.16): OU: Grade 2, 2+ pigmentH/o gtt: Gtt allergies: Levobunolol (red)Las/Surg:IOP doing well today. Continue Latanoprost QHS OU. Related to Primary open-angle glaucoma, bilateral, moderate stage Return in Related to Acute follicular conjunctivitis, left eye Impression/Plan - Pa nedant is to continue taking 10 day course of Valtrex. Informed patient of continuing with good hygiene. Patient to use artificial tears and an OTC antihistamine Zaditor BID OU. Discussed with patient that this is a virus and it needs to run its course. Dr. Weldon informed patient that there could be a possibility if transferring to the other eye. Patient is to return in three weeks for a recheck.Condition is improved, there was no AV test in office at last visit. *Patient did not flower buncher or picker Vigamox from pharmacy as her insurance did not cover it. Related to Acute follicular conjunctivitis, left eye Follow up - 3 weeks w/ CECYU conj check Related to Acute follicular conjunctivitis, left eye Sunday conj ck OS Related to Acu te follicular conjunctivitis, left eye Return in Related to Prima ry open-angle glaucoma, bilateral, moderate stage Impression/Plan - IO P today: Current gtt: Lumigan QHS OUC/D: .8/.824-2 (2917): Few FPs, significant FLs, Full OUOCT (date):Target: Pachy: 484/486T max: FH: Gonio (07.14.16): OU: Grade 2, 2+ pigmentH/o gtt: Gtt allergies: Levobunolol (red)Las/Surg:IOP doing well today. Continue Latanoprost QHS OU. Related to Primary open-angle glaucoma, bilateral, moderate stage Impression/Plan - In formed patient of conjunctivitis today. Uncertain of cause of today's diagosis - adeno vs. hsv (no adeno test in office). There is a small area of heaped up epithelium from resolving K abrasion vs. resolving dendrite. Recommend the patient begin Valtrex 500 mg PO TID. WIll continue to monitor. Also recommend the patient begin Vigamox QID OS (eRxed, if not covered, dispense Ciloxan). Also recommended Erythromycin Ointment QHS OS (eRxed). Script written for Vicodin as well today for pain as pt ran out of rx written by her PCP - will see PCP for extended script. . Will follow up on Sunday. Suspicious for viral etiology - hsv vs. adeno. Will consider a mild steroid at the next visit if NO corneal changes, while valtrex continued. Related to Acute follicular conjunctivitis, left eye Follow up - Sunday conj ck OS an y OD Related to Acute follicular conjunctivitis, left eye 5 mo w/ DEW or KRU; DFE, OCT-G, BAT Related to Primary open-angle glaucoma, bilateral, moderate stage Impression/Plan - IO P today: 02/09Current gtt: Lumigan QHS OUC/D: .8/.824-2 (2.9.17): Few FPs, significant FLs, Full OUOCT (date):Target: Pachy: 484/486T max: FH: Gonio (4.14.17): OU: Grade 2, 2+ pigmentH/o gtt: Gtt allergies: Levobunolol (red)Las/Surg:Informed patient of glaucoma diagnosis and effect it may have on visual acuity and quality of life. Advised patient of today's IOP, which is higher than desired. Discussed treatment options including drops vs. laser vs. surgery. Recommended patient proceed with a Yag PI OU to ensure her angles stay open. Patient consented and will schedule.Recommend patient continue medications as follows: switch from Levobunolol to Lumigan QHS OU (ERx)Patient with narrow angles. Risks of angle closure discussed with patient. Prophylactic Yag PI recommended. Procedure, risks and benefits discussed. Patient informed in a small subgroup of patients, angles may not open with this Yag PI procedure and another laser procedure may be required. Patient consented and Yag PI OU scheduled. Postoperative Medications: Pred Forte QID x 1 week (ERx) Related to Primary open-angle glaucoma, bilateral, moderate stage 1 Related to Prima ry open-angle glaucoma, bilateral, moderate stage Impression/Plan - Se e corresponding diagnosis. Related to Anatomical narrow angle, bilateral Follow up - Sched Yag PI OU, OD first Related to Primary open-angle glaucoma, bilateral, moderate stage Impression/Plan - IO P today: 16/15Current gtt: Lumigan QHS OUC/D: .8/.824-2 (2.9.17): Few FPs, significant FLs, Full OUOCT ():Target: Pachy: T max: FH: Gonio ((2.9.17): Grade 3, narrow approach, 1+ pigment OUH/o gtt: Gtt allergies: Levobunolol (red)Las/Surg:Informed patient of glaucoma diagnosis and effect it may have on visual acuity and quality of life. Advised patient of today's IOP, which is higher than desired. Discussed treatment options including drops vs. laser vs. surgery. Recommended patient proceed with a Yag PI OU to ensure her angles stay open. Patient consented and will schedule.Recommend patient continue medications as follows: switch from Levobunolol to Lumigan QHS OU (ERx)Patient with narrow angles. Risks of angle closure discussed with patient. Prophylactic Yag PI recommended. Procedure, risks and benefits discussed. Patient informed in a small subgroup of patients, angles may not open with this Yag PI procedure and another laser procedure may be required. Patient consented and Yag PI OU scheduled. Postoperative Medications: Pred Forte QID x 1 week (ERx) Related to Primary open-angle glaucoma, bilateral, moderate stage Return in Related to Dry e ye syndrome of right lacrimal gland Follow up - Return in Related to Dry eye syndrome of right lacrimal gland Impression/Plan - Dr porter eyes account for the patient's complaints. There are no objective signs or evidence of permanent corneal damage. Explained condition does not have a cure and will need artificial tears for maintenance. Patient to discontinue Lotemax due to cost. Will consider Restasis at follow up appointment. Recommend patient begin 1,000mg BID PO of fish oil supplements. 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 Patient informed of risks and benefits. .3 RUL and .4 BIBIANA Prolong plugs inserted without complication, consent signed. Will continue to monitor. Related to Dry eye syndrome of right lacrimal gland Impression/Plan - Or dered and obtained a Gonio OU today due to narrowing of angles seen on exam today. Reviewed results with patient. Informed patient that she may need to have a procedure done due to narrow angles. Patient to keep next appointment with to evaluate. Will continue to monitor for now. Related to Primary open-angle glaucoma, bilateral, moderate stage Return in Related to 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 Impression/Plan - Dr porter eyes account for the patient's complaints of aching and tearing. There are no objective signs or evidence of permanent corneal damage. Explained condition does not have a cure and will need artificial tears for maintenance. Patient to begin Lotemax BID OU (eRxed). Will recheck in 3 weeks. Related to Dry eye syndrome of bilateral lacrimal glands Impression/Plan - IO P today: 1514Current gtt: Levobunolol BID OU C/D: 0.8/.824-2 (date): OCT (date): Significant sup thinning OD, mild sup thinning OS.Target: TBDPachy: 484/486T max: FH: Gonio: H/o gtt: No HxGtt allergies: No HxLas,Surg: No HxInformed patient of glaucoma diagnosis and effect it may have on visual acuity and quality of life. Advised patient of today's IOP. Recommend patient continue medications as follows: Levobunolol BID OU. Will schedule glaucoma testing and exams to monitor. Related to Primary open-angle glaucoma, moderate stage 3 mos 24-2/IFD w/ JDS Related to Primary open-angle glaucoma, moderate stage Impression/Plan - Ph ysician recommends inserting punctal plugs. Patient consented and plugs were inserted using forceps without complication. Related to Dry eye syndrome of bilateral lacrimal glands Impression/Plan - IO P today: /Current gtt: Levobunolol BID OU C/D: 0.8/.824-2 (date): OCT (date): Significant sup thinning OD, mild sup thinning OS.Target: TBDPachy: 484/486T max: FH: Gonio: H/o gtt: No HxGtt allergies: No HxLas,Surg: No HxInformed patient of glaucoma diagnosis and effect it may have on visual acuity and quality of life. Advised patient of today's IOP. Recommend patient continue medications as follows: Levobunolol BID OU. Will schedule glaucoma testing and exams to monitor. 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 Discussed optimal results for patient should range from read 308 or below 308, or a 10mOsm interval improvement. Will continue to monitor condition with additional testing, observation, and treatment to insure patient remains within range. Related to Dry eye syndrome of bilateral lacrimal glands - Tears Osmolarity Impression/Plan - Re ason for Suspicion: increased cupping OU, IOP today: 17/15C/D: 0.8/.824-2 (date): OCT (date):Pachy: 484/486T max: Informed patient of glaucoma suspicion and effect it may have on visual acuity and quality of life if progression noted. Advised patient of today's IOP. Discussed findings with patient. Continue the Levobunolol OD BID only-. Will monitor with testing to rule out any glaucomatous manifestations. Related to Open angle with borderline findings, high risk, bilateral Impression/Plan - Dr Feng Hanna discussed exam findings with patient. Ordered and obtained pachymetry today. Patient discussed with Dr. Hanna about having to use her inhaler more doing to her shortness of breath lately. Use the Levobunolol in the just the right eye BID. Will monitor her IOP closely. Discussed with the patient about doing more testing for glaucoma. Informed pt that complaints of redness and tenderness are caused by scleritis. Discussed may consider laser treatment for her glaucoma. Informed patient that we have to get condition quiet for 3 months to prevent it from coming back. 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 Due to symptoms, ordered and obtained an Adeno test and reviewed negative results with patient. Informed her that she may need to be treated topically or orally depending on what the Phenylephrine shows. Discussed systemic conditions that patient has. Recommended patient have lab work done to determine etiology of condition. Informed her that this can help determine the cause of condition about half of the time. Discussed using Naproxen to treat. Per patient, her PCP does not want her to use Ibuprofen or Naproxen. Dr. Brewtser instructed her to take a Medrol dose jeovanny instead.Instructed patient to begin taking a Medrol dose jeovanny (ERx)Lab work ordered: CBC/DIFF, ESR, ANCA, ASTER, RHEUMATOID FACTOR, CH 50, CHARISMA, RPR, FTA-Ab, and Uric Acid.Instructed patient to f/u in 1-[address] 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 Reviewed testing results. VF loss possibly due to droopy lids as patient states she was tired while taking test. Reassured patient eyes appear healthy at today's exam. VF testing defects couls be due to ptosis vs. glaucoma.Recommend patient see an OD for glasses if she desires.Dictated letter to Dr. Eugenio DELAROSA, Dr. Estee DELAROSA, Dr. Alvarez OD, and Dr. Gonzalez Related to Pituitary adenoma - Ptosis noted at to day's exam. Possibly affected 30-2 results. Will schedule testing at patient's convienence. 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 Possibly causing 30-2 defects. Will do further testing to rule out ptosis vs. Glaucoma. Related to Opn Angl W Borderln Find - 1 year 30-2 Related to See i mpression: general plan 1. Pituitary Tumor-3 0-2 today reviewed ( in motility ) 2. OAG, OUIOP 19/20 - Discussed Visual Field Results w/ patient today. Reassured patient she is stable at this time. Will recheck annually and monitor visual abbasi*TATUM dictated letter to Dr. Steve Ashraf, Dr. Tim Lundberg Related to See impression: general plan - 2 months 30-2 Related to See i mpression: general plan 1. Pituitary Tumor-V F changes noted today, not present prior to surgery, may be artifacts of unreliable testing 2. OAG, OUIOP 03/15 - Discussed with patient visual field results. [facility] explains to patient of visual field changes that were not present prior to surgery. [facility] wishes to recheck 30-2 in 2 months for evaluation. *[facility] dictated letter to Dr. Steve Ashraf, Dr. Gonzalez , Dr. Dumont Related to See impression: general plan - 1 month recheck 30-2 Related t o See impression: general plan 1. Pituitary Tumor2. OAG, OUIOP - 1. Discussed with patient Visual field, Visual Acuity results in exam room today. Patient will continue with surgery and will recheck visual acuity/ visual abbasi at next exams to compare. 2. IOP is stable at this time. Patient to continue Latanoprost QHS OU as instructed. Patient manages Glaucoma w/ Dr. Alvarez. *[facility] dictated letter to Dr. Ruben Ashraf MD CC: MARNI Dumont, Dr. Shirley Alvarez* Related to See impression: general plan Assessments Type Assessment Date assessment Primary open-angle glaucoma, renea ateral, moderate stage Oct impression Primary open-angle g laucoma, bilateral, moderate stage: H40.1132.- s/p Yag PI OD 05/15/2016 (Dr. Gary)- s/p Yag PI OS 05/22/2016 (Dr. Gary)- s/p Standard Monofocal IOL w/ Hydrus Gel Stent oD 09/14/2020 (Dr. Brewster)- s/p CE phaco IOL w/ goniotomy OS 10/01/20 Dr. Brewster- Vanita (10/28/20): open to SS 360, no PAS, iris processes solomon, 2+ pigment OS assessment Other chronic allergic conjuncti vitis impression Other chronic allergic conjuncti vitis: H10.45. assessment Other secondary cataract, bilate ral impression Other secondary cataract, bilate ral: H26.493 Patient Care Teams Name Effective Dates (start - stop) Status Members No Information
== END 2024-03-11 14:22 | disposition home or self-care (01) ==
PROVIDERS: PCP Family Medicine; Visit Provider Student in an Organized Health Care Education/Training Program
DX: M06.09 Rheumatoid arthritis without rheumatoid factor, multiple sites (principal); Z79.60 Long term (current) use of unspecified immunomodulators and immunosuppressants
CPT/HCPCS: 99214

== ENCOUNTER → 2024-03-11 13:47 | Outpatient (BNVA) | payer OTHER, SELFPAY | PROVIDERS: PCP Family Medicine; Visit Provider Student in an Organized Health Care Education/Training Program | DX: M06.09 Rheumatoid arthritis without rheumatoid factor, multiple sites (principal); Z79.60 Long term (current) use of unspecified immunomodulators and immunosuppressants | CPT/HCPCS: 99212 ==

== ENCOUNTER 2024-09-09 13:27 | Outpatient (AMB) | payer OTHER, SELFPAY ==
[2024-09-09 13:56] VITALS: BP 130/68; PULSE 69; O2SAT 96; BMI 36.2
--- NOTE | 2024-09-09 13:56 | MHC.OFFVIS ---
Vital Signs 09/09/24 13:56 Height 5 ft 7.5 in Weight 234 lb 5.622 oz BMI 36.2 BP 130/68 Blood Pressure Location Lt brachial Position Sitting Pulse 69 Pulse Source Pulse Oximeter Pulse Oximetry (%) 96 Oxygen Delivery Method Room Air Intake Visit Reasons: RA Intake Note: Patient last seen by Doctor Deneen Triana on 03/11/24. Presents today for RA follow up and test results. Allergies naproxen Allergy (Intermediate, Verified 09/09/24 13:59) nausea, vomiting, diarrhea sulfasalazine Allergy (Intermediate, Verified 09/09/24 13:59) itchy indomethacin [From Indocin] Allergy (Unknown, Verified 09/09/24 13:59) Unknown Sulfa (Sulfonamide Antibiotics) Allergy (Unknown, Verified 09/09/24 13:59) Unknown prednisone Adverse Reaction (Mild, Verified 09/09/24 13:59) Swelling zocar Allergy (Unknown, Uncoded 09/09/24 13:59) unknown Medication List - Last Reconciled 09/09/24 by Imani Reyna MD alpha lipoic acid 200 mg PO DAILY biotin 10 mg PO DAILY cholecalciferol (vitamin D3) 25 mcg PO DAILY cyanocobalamin (vitamin B-12) 3,000 mcg PO DAILY diclofenac sodium 1% (Arthritis Pain (diclofenac)) 2 grams topical QID elderberry fruit mg PO losartan 100 mg PO DAILY magnesium oxide 400 mg PO DAILY swtxykms-dgc-vfba-FA-vit K-lut 8 mg iron-400 mcg-50 mcg (Centrum Silver Women) 1 tab PO DAILY [octive care 2-6 times a day as needed.] omega 4-hpg-smu-fish oil 100-160-1,000 mg (Fish Oil) caps PO DAILY Rinvoq ER (upadacitinib) 15 mg PO DAILY NS HPI Comments Details: Patient is a 74-year-old female with hypertension, hyperlipidemia, anxiety, depression, 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 Triana. At that time she was following up for her seronegative rheumatoid arthritis on Rinvoq monotherapy. She was doing well. Recently bought and a massaging chair which helps with the majority of her aches and pains. With respect to her arthritis she was doing well without any active synovitis. Today, patient continues to do well Rheumatoid arthritis is under control Rheumatologic History: Seronegative diagnosed 1998 HCQ not cleared by ophthalmology due to eye concerns Enbrel effective for many years until 2018 Humira started around 2018, not as effective Methotrexate intolerant due to brain fog Leflunomide discontinued due to neuropathy Sulfa allergy Prednisone causes mood disorders Actemra 10/2022 - 12/2022 effective but caused itchy skin rash & fatigue Kevzara 06/2023 DC 08/2023 ineffective Rinvoq 08/2023 effective Initial history: This is a 72-year-old female with past medical history of anxiety, depression, fibromyalgia, dyslipidemia who presents for evaluation of RA. Patient states she was diagnosed with rheumatoid arthritis in the late by Dr. Tate. ? 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 She did well on Enbrel for more than 10 years, and it was interrupted in 2017 when she had her right knee replacement. When the Enbrel was restarted it was never as efficacious as it was. Was doing well on Humira and leflunomide 10 mg a day however Leflunomide stopped due to neuropathy. Patient stated that she continues to have pain in her thumbs, the outside of her hips worse on the left. She has generalized morning stiffness lasting 15-20 minutes. Patient was diagnosed with neuropathy and leflunomide was discontinued. She had an EMG which showed mild neuropathy per patient. Venlafaxine helped the neuropathy.? Could not tolerate gabapentin.? Amitriptyline was not effective. Patient stated that she was also diagnosed with Sjogren's based on sicca symptoms and salivary gland biopsy. Some of her neuropathy was attributed to Sjogren's. Also over the last year she has been having loose stool and fecal incontinence. She had an endoscopy and manometry studies which showed rectal [employer]. Current Rheumatology Medication(s): Rinvoq 15 mg daily [facility] Medical History Ganglion cyst Fibromyalgia Rheumatoid arthritis Alopecia Kidney disease, chronic, stage III (GFR 30-59 ml/min) Essential (primary) hypertension Visual disturbance Restless leg syndrome PB (obstructive sleep apnea) Anxiety Depression Neutropenia Obesity Hyperlipemia Diabetes Surgical History History of knee replacement History of hysterectomy Hx of colonoscopy Hx of left knee surgery History of surgical removal of ganglion cyst Family History Daughter Osteoporosis Mother Rheumatoid arthritis Maternal Grandmother Rheumatoid arthritis Maternal Grandmother Rheumatoid arthritis Social History Household Members: Children Housing: House Alcohol intake: never Patient Tobacco Use Status: Never used Tobacco Current occupational status: previously employed and retired Current occupation: used to be a [employer]OCK [employer] for a long time Review of Systems Const Details: Review of Systems Constitutional: Denies fever, chills, weight loss ENT: Denies vision changes, eye pain or eye redness, dental caries, dry mouth GI: Denies nausea, vomiting, diarrhea, abdominal pain, change in BM Pulm: Denies SOB, GURROLA, hemoptysis, wheezing Cards: Denies chest pain, palpitations Skin: Denies Raynaud's, rash, nail changes, photosensitivity, SUSTAINABILITY PROJECT COORDINATOR: Denies headaches, weakness, paresthesias, recurrent falls MSK: as per HPI All other systems reviewed and are unremarkable except noted above Physical Exam Vital Signs: Last Vital Signs Pulse 69 09/09/24 13:56 BP 130/68 09/09/24 13:56 Pulse Ox 96 09/09/24 13:56 Oxygen Delivery Method Room Air 09/09/24 13:56 BMI result Body Mass Index 36.2 Vital signs reviewed Physical Examination CONSTITUITIONAL Patient alert and cooperative. Well appearing and in no apparent painful distress HEENT Conjunctiva and sclera clear. ?No lymphadenopathy. ? CHEST/RESPIRATORY SYSTEM Normal respiratory effort and able to speak in complete sentences. ?Clear to auscultation bilaterally. ?No crackles, rales, rhonchi, wheezes heard. CARDIAC SYSTEM Regular rate and rhythm. ?S1 and S2 heard no murmurs. ?Radial pulses intact bilaterally MSK Hands: ?Able to make a fist. No synovitis noted to the MCPs, PIPs or DIPs. ?No tenderness to palpation of these joints. Prominent Heberden nodes noted Wrists: ?Full range of motion at the wrists without pain. ?No tenderness to palpation or synovitis noted to the wrists. Elbows: Full range of motion without pain. No tenderness, weakness, swelling, increased warmth or erythema. Shoulders: Full range of active range of motion without pain. No tenderness, weakness, swelling, increased warmth or erythema. Hips: Full range of motion without pain. Hip bursa: Tenderness to palpation bilateral Knees: ?Full range of motion. ?No tenderness, swelling, increased warmth or erythema.? Healed scar noted over the right knee. Left knee with crepitations felt Ankles: Full range of motion. ?No tenderness, increased warmth or erythema.?2+ pitting edema noted to leg up to tibial tuberosity Feet: ?Negative squeeze test. ?No tenderness to palpation or swelling of the MTPs. Tender points:?No tenderness to palpation of the bilateral trapezius, supraspinatus, greater trochanters, anterior costochondral junctions, bilateral gluteal areas, bilateral suboccipital muscle insertions SKIN Skin intact without rashes. Results Reviewed Results Reviewed: [facility] labs reviewed Labs done 08/04/2024 WBC 5.63 Hemoglobin 12.4 Platelets 286 ESR 15 CRP 0.7 Creatinine 0.9 GFR >60 AST/ALT 34/49 TB negative Hepatitis panel nonreactive Assessment & Plan Assessment & Plan (1) Rheumatoid arthritis: Comment: Seronegative diagnosed 1998 HCQ not cleared by ophthalmology due to eye concerns Enbrel effective for many years until 2018 Humira started around 2018, not as effective Methotrexate intolerant due to brain fog Leflunomide discontinued due to neuropathy Sulfa allergy Prednisone causes mood disorders Actemra 10/2022 - 12/2022 effective but caused itchy skin rash & fatigue Kevzara 06/2023 DC 08/2023 ineffective Rinvoq 08/2023 effective Code(s): M06.9 - Rheumatoid arthritis, unspecified Category: Medical Qualifiers: Rheumatoid arthritis location: multiple sites Rheumatoid factor presence: without rheumatoid factor Qualified Code(s): M06.09 - Rheumatoid arthritis without rheumatoid factor, multiple sites Plan: #Seronegative RA Patient is a 74-year-old female with seronegative rheumatoid arthritis here today for follow up. Patient has a longstanding history of rheumatoid arthritis currently on Rinvoq monotherapy and currently in disease remission. Plan - Rinvoq 15mg daily - RTC 6 months - Labs before visit: CBC, CMP, ESR, CRP (2) Greater trochanteric pain syndrome: Code(s): M25.559 - Pain in unspecified hip Category: Medical Plan: #Bilateral trochanteric bursitis Patient with bilateral trochanteric bursitis. Stretching exercises given (3) Long-term current use of Janus kinase inhibitor: Code(s): Z79.622 - penitentiary (current) use of Janus kinase inhibitor Plan: #Long-term Use of JEREMIE inhibitor : Rinvoq Discussed with patient the benefits and risks of JEREMIE inhibitors for the management of the rheumatic condition Benefits include reduce pain, maintenance of remission and reduction of flares Risks include thromboembolic events, skin cancer and nonmelanoma skin cancers, other forms of cancer, cardiovascular alcohol and mortality Advise patient that they are to hold the medication and for up to 1 week after a febrile illness or an open skin wound Plan I spent 25 minutes reviewing the record and labs, taking a history, examining the patient, discussing the treatment plan, ordering diagnostic work up and documenting in the medical record Orders: Orders Complete Blood Count Auto Diff 6 Months M06.09 - Rheumatoid arthritis without rheumatoid factor, multiple sites Comprehensive Met. Panel 6 Months M06.09 - Rheumatoid arthritis without rheumatoid factor, multiple sites C Reactive Protein 6 Months M06.09 - Rheumatoid arthritis without rheumatoid factor, multiple sites Erythrocyte Sedimentation Rate 6 Months M06.09 - Rheumatoid arthritis without rheumatoid factor, multiple sites Coding Level of Care Code Est Pt Level 3 (01492) Complex EM visit Add On G2211 Diagnoses Rheumatoid arthritis of multiple sites with negative rheumatoid factor M06.09 Rheumatoid arthritis location: multiple sites Rheumatoid factor presence: without rheumatoid factor Greater trochanteric pain syndrome M25.559 Long-term current use of Janus kinase inhibitor Z79.622
--- OUTSIDE RECORDS SUMMARY | 2024-09-09 15:54 | XMS_ITS | Continuity of Care Document ---
Author Organization [facility] Address [address] [place] [address] Phone Care Team Providers Care Assistant Director Of Residence Life Name Role Phone Yady DELAROSA, Bret Unavailable Unavail able Procedures Procedure Date INITIAL HOSPITAL CARE SUBSEQUENT HOSPITAL CARE SUBSEQUENT HOSPITAL CARE HOSPITAL DISCHARGE DAY Advance Directives Directive Yes / No Effective Date File Name No Information Encounters Encounter Description Practice Location Reason(s) For Visit Diagnoses Date Provider Providers Copied on Encounter INITIAL HOSPITAL CARE [facility] [place] [address], [place], [place], [id number], tel:[phone] [facility] No Information Yady Queen. [address], [facility] [place], . tel:[phone] Referring Provider: Bret Conteh, [address] [facility] [address], [place], [facility] [place]. tel:[phone] Family History Family Member Type Diagnosis Age At Onset No Information Payers Payer name Insurance type Covered democrat ID Authoriza tion(s) [employer] CI [id number] [employer] Advantage [id number] [facility] [id number] Social History Type Description Quantity Date Captured Comments Sex Female Smoking Status No Information Chief Complaint And Reason For Visit No Information Reason For Referral Reason For Referral No Information History Of Present Illness Encounter Date Complaint History Of Prese nt Illness No Information Functional Status Date Functional Assessmen t No Information Instructions Date Instruction Additional Infor mation No Information Assessments Type Assessment Date No Information Patient Care Teams Name Effective Dates (start - stop) Status Members No Information
== END 2024-09-09 14:48 | disposition home or self-care (01) ==
LOC: HO.RHE 13:27
PROVIDERS: PCP Family Medicine; Visit Provider Student in an Organized Health Care Education/Training Program
DX: M06.09 Rheumatoid arthritis without rheumatoid factor, multiple sites (principal); M25.559 Pain in unspecified hip; Z79.622 Long term (current) use of Janus kinase inhibitor
CPT/HCPCS: 99213; G2211

== ENCOUNTER → 2024-09-09 13:27 | Outpatient (BNVA) | payer OTHER, SELFPAY | PROVIDERS: PCP Family Medicine; Visit Provider Student in an Organized Health Care Education/Training Program | DX: M06.09 Rheumatoid arthritis without rheumatoid factor, multiple sites (principal); M25.559 Pain in unspecified hip; Z79.622 Long term (current) use of Janus kinase inhibitor | CPT/HCPCS: 99212 ==

== ENCOUNTER 2025-03-10 12:37 | Outpatient (REF) | payer OTHER, SELFPAY ==
[2025-03-10 18:30] LABS: Alanine Aminotransferase 54 U/L (0-31); Aspartate Amino Transferase 59 U/L (5-31)
[2025-03-10 19:40] LABS: Erythrocyte Sedimentation Rate 64 MM/HR (0-20)
== END 2025-03-10 12:38 | disposition home or self-care (01) ==
LOC: HO.HKASLDS 12:37
PROVIDERS: PCP Physician Assistant; Visit Provider Student in an Organized Health Care Education/Training Program
DX: M06.09 Rheumatoid arthritis without rheumatoid factor, multiple sites (principal); M81.0 Age-related osteoporosis without current pathological fracture; Z13.820 Encounter for screening for osteoporosis; Z79.899 Other long term (current) drug therapy; Z79.631 Long term (current) use of antimetabolite agent; Z79.622 Long term (current) use of Janus kinase inhibitor
CPT/HCPCS: 36415; 84450; 84460; 85652; 86140; 99212

== ENCOUNTER 2025-03-10 12:37 | Outpatient (AMB) | payer OTHER, SELFPAY ==
--- NOTE | 2025-03-10 12:49 | A.OFFVIS_ITS ---
Vital Signs 03/10/25 12:57 Height 5 ft 7.5 in Weight 231 lb 11.293 oz BMI 35.8 BP 142/80 H Blood Pressure Location Lt brachial Position Sitting Pulse 75 Pulse Source Pulse Oximeter Pulse Oximetry (%) 95 Oxygen Delivery Method Room Air Intake Visit Reasons: RA Intake Note: Patient presents today for RA follow up and test results. 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 Required: No Information Interpreted: non-clinical & clinical Accompanied by: Self / Same As Patient Allergies naproxen Allergy (Intermediate, Verified 03/10/25 12:53) nausea, vomiting, diarrhea sulfasalazine Allergy (Intermediate, Verified 03/10/25 12:53) itchy indomethacin (From Indocin) Allergy (Unknown, Verified 03/10/25 12:53) Unknown Sulfa (Sulfonamide Antibiotics) Allergy (Unknown, Verified 03/10/25 12:53) Unknown prednisone Adverse Reaction (Mild, Verified 03/10/25 12:53) Swelling zocar Allergy (Unknown, Uncoded 09/09/24 13:59) unknown Medication List - Last Reconciled 03/10/25 by Imani Reyna MD alpha lipoic acid 200 mg PO DAILY atorvastatin 10 mg PO DAILY biotin 10 mg PO DAILY cholecalciferol (vitamin D3) 25 mcg PO DAILY cyanocobalamin (vitamin B-12) 3,000 mcg PO DAILY diclofenac sodium 1% (Arthritis Pain (diclofenac)) 2 grams topical QID elderberry fruit mg PO losartan 100 mg PO DAILY magnesium oxide 400 mg PO DAILY uapqgloa-qrg-jwin-FA-vit K-lut 8 mg iron-400 mcg-50 mcg (Centrum Silver Women) 1 tab PO DAILY [octive care 2-6 times a day as needed.] omega 6-eir-ljs-fish oil 100-160-1,000 mg (Fish Oil) caps PO DAILY Rinvoq ER (upadacitinib) 15 mg PO DAILY NS semaglutide (Ozempic) 0.25 mg subcut QWEEK HPI Comments Details: Patient is a 75-year-old female with hypertension, hyperlipidemia, anxiety, depression, 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, fibromyalgia and seronegative rheumatoid arthritis here today for follow up Interval History: Patient last seen 09/09/24 with me - On Rinvoq 15mg daily - Patient continues to do well - Rheumatoid arthritis is under control Today - On Rinvoq 15mg daily - Worsening pain overall - Now on night O2 Rheumatologic History: Seronegative diagnosed 1998 HCQ not cleared by ophthalmology due to eye concerns Enbrel effective for many years until 2018 Humira started around 2017, not as effective Methotrexate intolerant due to brain fog Leflunomide discontinued due to neuropathy Sulfa allergy Prednisone causes mood disorders Actemra 10/2022 - 12/2022 effective but caused itchy skin rash & fatigue Kevzara 06/2023 DC 08/2023 ineffective Rinvoq 08/2023 effective Initial history: This is a 72-year-old female with past medical history of anxiety, depression, fibromyalgia, dyslipidemia who presents for evaluation of RA. Patient states she was diagnosed with rheumatoid arthritis in the late by Dr. Tate. ? 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 She did well on Enbrel for more than 10 years, and it was interrupted in 2017 w hen she had her right knee replacement. When the Enbrel was restarted it was never as efficacious as it was. Was doing well on Humira and leflunomide 10 mg a day however Leflunomide stopped due to neuropathy. Patient stated that she continues to have pain in her thumbs, the outside of her hips worse on the left. She has generalized morning stiffness lasting 15-20 minutes. Patient was diagnosed with neuropathy and leflunomide was discontinued. She had an EMG which showed mild neuropathy per patient. Venlafaxine helped the neuropathy.? Could not tolerate gabapentin.? Amitriptyline was not effective. Patient stated that she was also diagnosed with Sjogren's based on sicca symptoms and salivary gland biopsy. Some of her neuropathy was attributed to Sjogren's. Also over the last year she has been having loose stool and fecal incontinence. She had an endoscopy and manometry studies which showed rectal Dyssnergia. Current Rheumatology Medication(s): Rinvoq 15 mg daily [facility] Medical History Ganglion cyst Fibromyalgia Rheumatoid arthritis Alopecia Kidney disease, chronic, stage III (GFR 30-59 ml/min) Essential (primary) hypertension Visual disturbance Restless leg syndrome PB (obstructive sleep apnea) Anxiety Depression Neutropenia Obesity Hyperlipemia Diabetes Surgical History History of knee replacement History of hysterectomy Hx of colonoscopy Hx of left knee surgery History of surgical removal of ganglion cyst Family History Daughter Osteoporosis Mother Rheumatoid arthritis Maternal Grandmother Rheumatoid arthritis Maternal Grandmother Rheumatoid arthritis Social History Household Members: Children Housing: House Alcohol intake: never Patient Tobacco Use Status: Never used Tobacco Current occupational status: previously employed and retired 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 Review of Systems Narrative Review of Systems Constitutional: Denies fever, chills, weight loss ENT: Denies vision changes, eye pain or eye redness, dental caries, dry mouth GI: Denies nausea, vomiting, diarrhea, abdominal pain, change in BM Pulm: Denies SOB, GURROLA, hemoptysis, wheezing Cards: Denies chest pain, palpitations Skin: Denies Raynaud's, rash, nail changes, photosensitivity, CONSUMER MARKETING MANAGER: Denies headaches, weakness, paresthesias, recurrent falls MSK: as per HPI All other systems reviewed and are unremarkable except noted above Physical Exam Exam Exam: Vital signs reviewed Physical Examination CONSTITUITIONAL Patient alert and cooperative. Well appearing and in no apparent painful distress MSK Hands * Right Hand: Able to make a fist. No swelling or tenderness to palpation of the MCPs, PIPs or DIPs. * Left Hand: Able to make a fist. No swelling or tenderness to palpation of the MCPs, PIPs or DIPs. * Herbedens nodes noted bilaterally Wrists * Right Wrist: Full ROM to flexion and extension. No swelling or TTP * Left Wrist: Full ROM to flexion and extension. No swelling or TTP Elbows * Right Elbow: Full ROM. No swelling or TTP. No TTP of the medial epicondyle. No TTP of the lateral epicondyle * Left Elbow: Full ROM. No swelling or TTP. No TTP of the medial epicondyle. No TTP of the lateral epicondyle Shoulders * Right shoulder: Full ROM. No swelling noted. No TTP of the AC joint. No TTP of the subacromial bursa. No TTP of the posterior shoulder * Left shoulder: Full ROM. No swelling noted. No TTP of the AC joint. No TTP of the subacromial bursa. No TTP of the posterior shoulder Hip Bursa * Bilateral TTP Knees * Right knee: Full ROM. No swelling noted. No TTP of the knee joint line. No TTP of pes anserine bursa * Left knee: Full ROM. No swelling noted. No TTP of the knee joint line. No TTP of pes anserine bursa. * Crepitations felt bilaterally Ankles * Right ankle: Good ankle dorsiflexion and plantar flexion. No swelling. No TTP of the ankle joint * Left ankle: Good ankle dorsiflexion and plantar flexion. No swelling. No TTP of the ankle joint Feet * Right foot: Positive squeeze test * Left foot: Positive squeeze test SKIN No rashes Vital Signs: Last Vital Signs Pulse 75 03/10/25 12:57 BP 142/80 H 03/10/25 12:57 Pulse Ox 95 03/10/25 12:57 Oxygen Delivery Method Room Air 03/10/25 12:57 BMI result Body Mass Index 35.8 Results Reviewed Results Reviewed: 08/11/24 VMG 03/06/25 VMG WBC 8.01 Hb 12.2 Plt 341 BUN 16 Cr 1.0 eGFR 59.5 AST 69 H ALT 50 H ESR 15 64 H CRP 0.7 17.8 H T Spot Negative Hep B NR Hep C NR Assessment & Plan Assessment & Plan (1) Rheumatoid arthritis: Comment: Seronegative diagnosed 1998 HCQ not cleared by ophthalmology due to eye concerns Enbrel effective for many years until 2018 Humira started around 2018, not as effective Methotrexate intolerant due to brain fog Leflunomide discontinued due to neuropathy Sulfa allergy Prednisone causes mood disorders Actemra 10/2022 - 12/2022 effective but caused itchy skin rash & fatigue Kevzara 06/2023 DC 08/2023 ineffective Rinvoq 08/2023 effective Code(s): M06.9 - Rheumatoid arthritis, unspecified Category: Medical Qualifiers: Rheumatoid arthritis location: multiple sites Rheumatoid factor presence: without rheumatoid factor Qualified Code(s): M06.09 - Rheumatoid arthritis without rheumatoid factor, multiple sites Plan: #Seronegative RA Patient is a 74-year-old female with seronegative rheumatoid arthritis here today for follow up. Patient has a longstanding history of rheumatoid arthritis currently on Rinvoq monotherapy No synovitis on exam except for positive squeeze test bilaterally Her inflammatory markers and LFTs are elevated without recent infection She did start a new supplement Will recheck labs, if persistent elevation will change Rinvoq to Simponi Plan - Rinvoq 15mg daily - Labs today: AST, ALT, ESR, CRP - If persistently elevated will change to Simponi - RTC 4 months - Labs before visit: CBC, CMP, ESR, CRP (2) Greater trochanteric pain syndrome: Code(s): M25.559 - Pain in unspecified hip Category: Medical Plan: #Bilateral trochanteric bursitis Patient with bilateral trochanteric bursitis. Continue stretching (3) Encounter for screening for osteoporosis: Code(s): Z13.820 - Encounter for screening for osteoporosis Plan: #Screening for osteoporosis Will order DEXA (4) Long-term current use of Janus kinase inhibitor: Code(s): Z79.622 - salvage determiner (current) use of Janus kinase inhibitor Plan: #Long-term Use of JEREMIE inhibitor : Rinvoq Discussed with patient the benefits and risks of JEREMIE inhibitors for the management of the rheumatic condition Benefits include reduce pain, maintenance of remission and reduction of flares Risks include thromboembolic events, skin cancer and nonmelanoma skin cancers, other forms of cancer, cardiovascular alcohol and mortality Advise patient that they are to hold the medication and for up to 1 week after a febrile illness or an open skin wound Plan I spent 25 minutes reviewing the record and labs, taking a history, examining the patient, discussing the treatment plan, ordering diagnostic work up and documenting in the medical record Orders: Orders Aspartate Amino Transferase Today Z79.899 - Other assisted (current) drug therapy C Reactive Protein Today Z79.899 - Other superintendent terminal (current) drug therapy Erythrocyte Sedimentation Rate Today Z79.899 - Other superintendent terminal (current) drug therapy XR DEXA axial skeleton Today M81.0 - Age-related osteoporosis without current pathological fracture Alanine Aminotransferase Today Z79.899 - Other assisted (current) drug therapy Complete Blood Count Auto Diff 4 Months Z79.899 - Other assisted (current) drug therapy Comprehensive Met. Panel 4 Months Z79.899 - Other superintendent terminal (current) drug therapy C Reactive Protein 4 Months Z79.899 - Other superintendent terminal (current) drug therapy Erythrocyte Sedimentation Rate 4 Months Z79.899 - Other superintendent terminal (current) drug therapy Coding Level of Care Code Est Pt Level 4 (17236) Complex visit Add On G2211 Diagnoses Rheumatoid arthritis of multiple sites with negative rheumatoid factor M06.09 Rheumatoid arthritis location: multiple sites Rheumatoid factor presence: without rheumatoid factor Greater trochanteric pain syndrome M25.559 Encounter for screening for osteoporosis Z13.820 Long-term current use of Janus kinase inhibitor Z79.622
[2025-03-10 12:57] VITALS: BP 142/80; PULSE 75; O2SAT 95; BMI 35.8
== END 2025-03-10 13:22 | disposition home or self-care (01) ==
LOC: HO.RHES 12:38
PROVIDERS: PCP Family Medicine; Visit Provider Student in an Organized Health Care Education/Training Program
DX: M06.09 Rheumatoid arthritis without rheumatoid factor, multiple sites (principal); M25.559 Pain in unspecified hip; Z13.820 Encounter for screening for osteoporosis; Z79.622 Long term (current) use of Janus kinase inhibitor
CPT/HCPCS: 99214; G2211